=== PATIENT | male | born 1955 | race Caucasian/White ===

== ENCOUNTER → 2018-05-10 10:53 | Outpatient (CLI) | payer OTHER, SELFPAY ==
--- NOTE | 2018-05-17 17:47 | PM.PFT.1 ---
Pulmonary Function Test Referral & Results Date Patient Seen: 05/10/18 Requesting provider: Fadi Garcia Results: The spirometry demonstrates an FVC of 4.11 L which is 75% of predicted. The FEV1 was measured at 3.26 L which is 79% of predicted. The FEV1/FVC ratio was 79 which is 105% of predicted. Following the administration of bronchodilator there was no appreciable change. Lung volumes show an SVC of 5.18 L which is 96% of predicted. The diffusing capacity was measured at 35.98 which is 92% of predicted. The maximum voluntary ventilation was normal. Interpretation: This study demonstrates very mild obstructive lung disease without evidence of benefit following bronchodilator administration. No other pulmonary abnormality was identified
== END ==
DX: R05 Cough (principal)
CPT/HCPCS: 94010; 94060; 94726; 94729

== ENCOUNTER → 2018-09-07 10:48 | Outpatient (CLI) | payer OTHER, SELFPAY ==
--- NOTE | 2018-09-07 | DI.MRI.S_ITS ---
PROCEDURE: MR CERVICAL SPINE WO CON INDICATIONS: Cervicalgia TECHNIQUE: Noncontrast sagittal T1 spin echo and T2 fast spin echo, sagittal STIR, foraminal oblique sagittal T2 fast spin echo, and axial gradient echo or T2 fast spin echo through the cervical spine. COMPARISON: [facility], CR, CERVICAL SPINE 2 OR 3 VIEWS, 04/23/2014, 12:30. [facility], MR, C-SPINE WITHOUT CONTRAST, 05/28/2017, 12:49. [facility], MR, C-SPINE WITHOUT CONTRAST, 05/18/2014, 17:09. FINDINGS: Image quality: Excellent. Alignment and Curvature: There is normal bony alignment. Bone Marrow: Marrow demonstrates normal overall signal. Spinal Cord: Visualized spinal cord has normal size and signal. No cerebellar tonsillar herniation. Paraspinous Soft Tissues: No paravertebral masses. Prevertebral soft tissues are normal in thickness. C2-C3: Preserved disc height. Mild disc desiccation. Mild bilateral uncovertebral hypertrophy. Moderate right facet arthropathy. The central canal is patent. Mild right foraminal stenosis. Patent left neural foramen. There is no significant change from the last exam. C3-C4: Preserved disc height. Mild disc desiccation. There is diffuse posterior disc bulge and mild bilateral uncovertebral hypertrophy. Severe left and moderate right facet arthropathy. The central canal is mildly narrowed. Severe left and moderate right foraminal stenosis. There is no significant change from the last exam. C4-C5: Pkxy-tu-[id number] loss of disc height and disc desiccation. There is diffuse posterior disc bulge and disc osteophyte complex. Bilateral uncovertebral hypertrophy. Mild bilateral facet arthropathy. The central canal is severely narrowed. There is mild flattening of the anterior cord at this level. Severe bilateral foraminal stenosis. There is no significant change from the last exam. C5-C6: Mild loss of disc height and moderate disc desiccation. There is diffuse posterior disc bulge and disc osteophyte complex. Mild bilateral facet arthropathy. The central canal is moderately narrowed. Moderate right and mild left foraminal stenosis. There is no significant change from the last exam. C6-C7: Moderate loss of disc height and moderate disc desiccation. There is diffuse posterior disc bulge and large disc osteophyte complex. Mild bilateral facet arthropathy. The central canal is moderately narrowed. Mild bilateral foraminal stenosis. There is no significant change from the last exam. C7-T1: Normal appearance. IMPRESSION: 1. Multilevel degenerative disc disease and facet arthropathy as described. 2. Central canal stenosis, severe at C4-C5, moderate at C5-C6 and C6-C7. 3. Multilevel foraminal stenosis as described, severe at C3-C4 on the left and C4-C5 bilaterally, moderate at C3-C4 on the right and C5-C6 on the right. Dictated by: Gisela Peters M.D. on 09/09/2018 at 9:41 Approved by: Gisela Peters M.D. on 09/09/2018 at 9:59
== END ==
PROVIDERS: PCP Registered Nurse; Visit Provider Registered Nurse
DX: M50.31 Other cervical disc degeneration, high cervical region (principal); M47.812 Spondylosis without myelopathy or radiculopathy, cervical region; M48.02 Spinal stenosis, cervical region
CPT/HCPCS: 72141

== ENCOUNTER → 2019-07-16 13:51 | Outpatient (CLI) | payer MEDICARE, OTHER, SELFPAY ==
--- NOTE | 2019-07-16 | DI.CT.S_ITS ---
PROCEDURE: CT CHEST W CON INDICATIONS: LUNG NODULE TECHNIQUE: After the administration of intravenous contrast, 5 mm thick sections acquired from the pulmonary apices to the posterior costophrenic angles. 1 mm axial lung, 5 mm thick coronal and sagittal reformats and 7 mm axial MIP were acquired. For radiation dose reduction, the following was used: automated exposure control, adjustment of mA and/or kV according to patient size. COMPARISON: [facility], , CHEST 2 VIEW, 04/23/2014, 12:30. FINDINGS: Image quality: Excellent. Lungs and pleura: No acute air space opacities. There are several scattered bilateral subcentimeter calcified pulmonary nodules likely representing pulmonary granulomas. There is a 5 mm noncalcified pulmonary nodule seen in the anterior aspect of the left upper lobe visualized on image 81, series 3. No pleural effusions or pneumothorax. Central and peripheral airways are patent and normal in caliber. Mediastinum: Heart size is normal. Scattered atherosclerotic calcifications of the coronary arteries are noted. No pericardial effusion. No mediastinal or hilar adenopathy by size criteria. Several of these mediastinal and hilar lymph nodes are calcified. Thoracic aorta and central pulmonary arteries are normal in size. Esophagus is normal in caliber. No hiatal hernia. Bones and chest wall: No suspicious bony lesions. No acute vertebral body compression fractures. Multilevel spondylitic changes throughout the imaged spine. No axillary or supraclavicular adenopathy by size criteria. Thyroid gland is unremarkable. Abdomen: 2 cm partially exophytic right renal cyst. Calcified splenic granuloma. Remainder of the visualized upper abdominal solid organs appear normal. Upper abdominal bowel loops are normal in caliber. IMPRESSION: 1. CT chest without acute cardiopulmonary abnormalities. 2. Multiple stigmata of prior granulomatous disease with calcified pulmonary granulomas, calcified mediastinal/hilar lymph nodes, and calcified splenic granuloma. There is one 5 mm noncalcified pulmonary nodule in the left upper lobe. This likely represents a noncalcified pulmonary granuloma; however, consider followup chest CT in one year to document stability. Dictated by: Maicol Jaquez M.D. on 07/16/2019 at 16:11 Approved by: Maicol Jaquez M.D. on 07/16/2019 at 16:23
[2019-07-16 14:25] LABS: BUN Creatinine Ratio 26.7 (6-22); Blood Urea Nitrogen 24 mg/dL (9-20); Calcium 9.6 mg/dL (8.4-10.2); Carbon Dioxide 26 mmol/L (22-32); Chloride 104 mmol/L (98-107); Estimated Glomerular Filt Rate > 60.0 mL/min (>60); Glucose 168 mg/dL (80-110); HEMOLYSIS < 15 (0-50); Potassium 3.7 mmol/L (3.4-5.1); Sodium 140 mmol/L (137-145)
== END ==
PROVIDERS: PCP Registered Nurse; Visit Provider Physician Assistant Medical
DX: R91.8 Other nonspecific abnormal finding of lung field (principal); I25.10 Atherosclerotic heart disease of native coronary artery without angina pectoris; M47.819 Spondylosis without myelopathy or radiculopathy, site unspecified; N28.1 Cyst of kidney, acquired
CPT/HCPCS: 36415; 71260; 80048; Q9967

== ENCOUNTER → 2019-10-17 11:45 | Outpatient (CLI) | payer MEDICARE, OTHER, SELFPAY ==
--- NOTE | 2019-10-17 | DI.MRI.S_ITS ---
PROCEDURE: MR SHOULDER LT WO CON INDICATIONS: Pain in left shoulder TECHNIQUE: Noncontrast oblique coronal T2 fast spin echo with fat saturation, oblique sagittal T1 spin echo and T2 fast spin echo with fat saturation, axial T1 spin echo and T2 fast spin echo with fat saturation through the shoulder. COMPARISON: [facility] [place], CR, XR SHOULDER 2+ VIEWS LEFT, 08/08/2019, 11:30. FINDINGS: Image quality: Diagnostic. Rotator cuff: There is a complete subscapularis tendon tear that measures approximately 3.4 cm in transverse dimension with retraction of the torn tendon fragments by approximately 2.6 cm, which are positioned at the acromioclavicular joint. A portion of the supraspinatus tendon insertion remains attached to the greater tuberosity, which measures up to approximately 1.5 cm. There is increased signal noted involving the distal subscapularis and infraspinatus tendons without significant hearing evident. There may be low-grade partial-thickness tearing extending along the infraspinatus myotendinous junction. The teres minor tendon is intact. There is no significant atrophy of the rotator cuff muscles. Bones and bursae: No acute fracture, dislocation, or suspicious osseous lesions are identified involving the osseous structures of the left shoulder. No significant degenerative changes of the glenohumeral joint are present. There are moderate degenerative changes of the acromioclavicular joint with mild lateral acromial downsloping. There is a large glenohumeral joint effusion that communicates with the subacromial subdeltoid bursa. Capsule and soft tissues: Evaluation of the labrum and the glenohumeral ligaments is suboptimal without intra-articular contrast. No acute injuries are suspected involving the glenohumeral ligaments, which appear to be intact. There is irregularity of the posterosuperior labrum, which extends from the 12 o'clock position to the 3 o'clock position, suggesting chronic labral degeneration or labral tearing. The long head of the biceps tendon is normally positioned within the bicipital groove and is otherwise intact and unremarkable. IMPRESSION: 1. Complete supraspinatus tendon tear with moderate distal retraction. 2. Low grade partial thickness tearing and tendinopathy of the subscapularis and supraspinatus tendons with corresponding tendinopathy. An interstitial/delaminating component extending along the infraspinatus myotendinous junction may be present. 3. Small to moderate-sized posterosuperior labral tear likely is chronic/degenerative. 4. Moderate degenerative changes of the acromioclavicular joint. Dictated by: Stevie Benavides M.D. on 10/17/2019 at 14:56 Approved by: Stevie Benavides M.D. on 10/17/2019 at 15:00
== END ==
PROVIDERS: PCP Registered Nurse; Referring Provider Family Medicine; Visit Provider Orthopaedic Surgery
DX: M25.512 Pain in left shoulder (principal); M75.122 Complete rotator cuff tear or rupture of left shoulder, not specified as traumatic; S43.492A Other sprain of left shoulder joint, initial encounter
CPT/HCPCS: 73221

== ENCOUNTER → 2020-05-11 11:20 | Outpatient (CLI) | payer MEDICARE, OTHER, SELFPAY ==
--- NOTE | 2020-05-11 | DI.CT.S_ITS ---
PROCEDURE: CT ABDOMEN PELVIS WO/W CON INDICATIONS: Hematuria, unspecified TECHNIQUE: Optional 5 mm thick noncontrast images acquired from the diaphragm to the symphysis pubis. After the administration of intravenous contrast, 5 mm thick images acquired from the diaphragm to the symphysis pubis after a 10-minute delay. 2 mm thick coronal and sagittal reformats were then performed of the kidneys and ureters. For radiation dose reduction, the following was used: automated exposure control, adjustment of mA and/or kV according to patient size. COMPARISON: [facility] [place], CR, XR LUMBAR SPINE WITH OLBIQUES PLUS FLEXION EXTENSION, 11/19/2017, 14:40. [facility], CT, CT CHEST W CON, 07/16/2019, 15:12. FINDINGS: Image quality: Excellent. Lung bases: Lung bases are clear. Scattered calcified granuloma. Heart size is normal. Urinary system: Both kidneys are normal in size, without hydronephrosis. The 3 small nonobstructing kidney stones on the right measuring 3 mm or less. No perinephric fat stranding. There is normal bilateral renal enhancement. Several small benign renal cysts and peripelvic cysts bilaterally. No solid renal mass. Renal calyces appear normal in morphology when filled with contrast. Opacified portions of both ureters demonstrate normal caliber. Bladder wall thickness is normal. No calcified bladder stones. Other solid organs: Liver is normal in size. Hepatic steatosis. Gallbladder is unremarkable. . Biliary system is non dilated. Pancreas enhances normally. Spleen is normal in size and enhancement. Calcified splenic granuloma. No adrenal nodules. Peritoneum and bowel: Bowel loops demonstrate normal wall thickness and caliber. Normal appendix. No free fluid or air. Nodes and vessels: No retroperitoneal or mesenteric adenopathy by size criteria. Aorta and inferior vena cava are normal in size. Abdominal wall: No ventral hernias. Pelvis: No pathologic free pelvic fluid. Right hydrocele. Prostate brachytherapy seeds. No inguinal hernias or adenopathy. Bones: No suspicious bony lesions. Sclerotic focus in the L4 vertebral body is unchanged since 2018. No vertebral body compression fractures. IMPRESSION: 1. No solid renal mass. 2. No upper urinary tract filling defect within the opacified portions. 3. Small nonobstructing kidney stones in the right kidney. No hydronephrosis. 4. Hepatic steatosis. Dictated by: Narciso Tobias M.D. on 05/11/2020 at 18:41 Approved by: Narciso Tobias M.D. on 05/11/2020 at 18:49
[2020-05-11 11:52] LABS: BUN Creatinine Ratio 37.5 (6-22); Blood Urea Nitrogen 30 mg/dL (9-20); Calcium 9.8 mg/dL (8.4-10.2); Carbon Dioxide 25 mmol/L (22-32); Chloride 106 mmol/L (98-107); Estimated Glomerular Filt Rate > 60.0 mL/min (>60); Glucose 94 mg/dL (80-110); HEMOLYSIS < 15 (0-50); Potassium 4.6 mmol/L (3.4-5.1); Sodium 138 mmol/L (137-145)
== END ==
PROVIDERS: PCP Family Medicine; Referring Provider Physician Assistant; Visit Provider Physician Assistant
DX: Z01.812 Encounter for preprocedural laboratory examination (principal); R31.9 Hematuria, unspecified; K76.0 Fatty (change of) liver, not elsewhere classified; N20.0 Calculus of kidney
CPT/HCPCS: 36415; 74178; 80048; Q9967

== ENCOUNTER → 2020-07-15 12:06 | Outpatient (CLI) | payer MEDICARE, OTHER, SELFPAY ==
--- NOTE | 2020-07-15 | DI.CT.S_ITS ---
PROCEDURE: CT CHEST HIGH RESOLUTION INDICATIONS: Other disorders of lung TECHNIQUE: Noncontrast 1.0 and 5.0 mm thick contiguous axial sections from the pulmonary apex to the posterior costophrenic angles, with 7 mm thick coronal and sagittal MIP reformats. 1 mm thick dynamic expiratory images acquired through the upper, mid, and lower lungs. 1.0 mm thick axial sections acquired from the roberth to the posterior costophrenic angles in the prone end-inspiration position. For radiation dose reduction, the following was used: automated exposure control, adjustment of mA and/or kV according to patient size. COMPARISON: [facility], CT, CT CHEST W CON, 07/16/2019, 15:12. FINDINGS: Image quality: Excellent. Lungs and pleura: Several widely scattered bilateral calcified nodules are again seen. A noncalcified nodule in the anterior left upper lobe is stable measuring 5 mm (3/84). No other suspicious nodules, masses, cysts, pleural effusions, or pleural calcification. Central and peripheral airways are patent and of normal caliber without peribronchial thickening. No air trapping on dynamic images. Mediastinum: Heart size is normal. Mild coronary calcification at the distal LAD. No pericardial effusion. Multiple calcified mediastinal lymph nodes are present. No new bulky noncalcified mediastinal or hilar nodes. Thoracic aorta and central pulmonary arteries are normal in size. Esophagus is normal in caliber. Bones and chest wall: Healed deformity of prior right rib fractures. No suspicious bony lesions. No vertebral body compression fractures. Abdomen: Visualized upper abdominal solid organs demonstrate mild to moderate hepatic steatosis and are otherwise normal appearing. IMPRESSION: 1. Stable noncalcified anterior left upper lobe nodule. Continued surveillance until at least two year stability has been established. 2. Multiple bilateral calcified granulomas and mediastinal tino calcifications consistent with remote granulomatous disease exposure. 3. Mild hepatic steatosis. Dictated by: Maile Peck M.D. on 07/15/2020 at 15:58 Approved by: Maile Peck M.D. on 07/15/2020 at 16:09
== END ==
PROVIDERS: PCP Family Medicine; Referring Provider Physician Assistant; Visit Provider Physician Assistant
DX: R91.8 Other nonspecific abnormal finding of lung field (principal); J98.4 Other disorders of lung; K76.0 Fatty (change of) liver, not elsewhere classified; I25.10 Atherosclerotic heart disease of native coronary artery without angina pectoris
CPT/HCPCS: 71250

== ENCOUNTER → 2021-04-05 09:06 | Outpatient (CLI) | payer MEDICARE, OTHER, SELFPAY ==
--- NOTE | 2021-04-05 09:08 | DI.RAD.S_ITS ---
PROCEDURE: XR KUB INDICATIONS: Kidney stones TECHNIQUE: One view of the abdomen acquired. COMPARISON: [facility], CT, CT ABDOMEN PELVIS WO/W CON, 05/11/2020, 12:18. FINDINGS: Surgical changes and devices: None. Bowel: Bowel gas pattern is normal. Soft tissues: No suspicious abdominal calcifications. Visualized solid organ contours appear normal in size. Bones: No suspicious bony lesions. IMPRESSION: Nonspecific bowel gas pattern. A urinary tract stone is not seen. Dictated by: Viraj Joe M.D. on 04/05/2021 at 10:13 Approved by: Viraj Joe M.D. on 04/05/2021 at 10:13
[2021-04-05 11:25] LABS: Prostate Specific Antigen 0.192 ng/mL (0.10-4.00)
== END ==
PROVIDERS: PCP Family Medicine; Referring Provider Specialist; Visit Provider Specialist
DX: R97.20 Elevated prostate specific antigen [PSA] (principal); N20.0 Calculus of kidney
CPT/HCPCS: 36415; 74018; 84153

== ENCOUNTER → 2021-08-24 12:49 | Outpatient (CLI) | payer MEDICARE, OTHER, SELFPAY ==
[2021-08-24 13:51] LABS: COVID19 -Nasal RAPID Negative (Negative)
== END ==
PROVIDERS: PCP Family Medicine; Referring Provider Internal Medicine; Visit Provider Internal Medicine
DX: Z20.822 Contact with and (suspected) exposure to COVID-19 (principal)
CPT/HCPCS: 87635; C9803

== ENCOUNTER → 2021-08-25 08:59 | Outpatient (CLI) | payer MEDICARE, OTHER, SELFPAY ==
--- NOTE | 2021-09-02 16:29 | P.PFT.S_ITS ---
Pulmonary Function Test Referral & Results Date Patient Seen: 08/25/21 Requesting provider: Tata Dudley Results: The spirometry demonstrates an FVC of 3.81 L which is 70% of predicted. The FEV1 was measured at 2.65 L which is 66% of predicted. The FEV1/FVC ratio was 70 which is 94% of predicted. Following the administration of bronchodilator there was a 9% improvement in FEV1 and a 34% improvement in FEF 25-75% Lung volumes show an SVC of 4.29 L which is 80% of predicted. The diffusing capacity was measured at 30.49 which is 78% of predicted. No hemoglobin value was provided, so no correction for potential anemia could be made, if appropriate. The maximum voluntary ventilation was normal Interpretation: This study demonstrates moderate obstructive lung disease based on reduction F EV1 although FEV1/FVC ratio is preserved there is some minimal evidence of benefit following bronchodilator particularly small airway flow based on the improvement in FEF 25-75% as above There is a minimal reduction in lung volumes suggesting mild restrictive lung disease There is also minimal reduction diffusing capacity suggesting element of disease at the capillary alveolar level Compared to PFTs performed in April 2018, there is been a decline in all of patient's lung volumes. The minimal obstructive lung disease seen on current study does not appear to be present on previous study There is also a more notable reduction in diffusing capacity Clinical correlation suggested
== END ==
PROVIDERS: PCP Family Medicine; Referring Provider Internal Medicine Cardiovascular Disease; Visit Provider Internal Medicine Cardiovascular Disease
DX: R06.02 Shortness of breath (principal); Z87.891 Personal history of nicotine dependence; J98.8 Other specified respiratory disorders
CPT/HCPCS: 94060; 94726; 94729

== ENCOUNTER → 2021-11-29 11:03 | Outpatient (CLI) | payer MEDICARE, OTHER, SELFPAY ==
--- NOTE | 2021-11-29 | DI.CT.S_ITS ---
PROCEDURE: CT CHEST WO CON INDICATIONS: Solitary pulmonary nodule TECHNIQUE: Noncontrast 2.0-2.5 mm thick sections acquired from the pulmonary apices to the posterior costophrenic angles. 7 mm thick axial MIP and 5 mm coronal and sagittal reformats were then acquired. A low radiation dose technique was utilized. COMPARISON: [facility], CT, CT CHEST W CON, 07/16/2019, 15:12. [facility], CT, CT CHEST HIGH RESOLUTION, 07/15/2020, 12:11. FINDINGS: Image quality: Diagnostic, given the low radiation dose technique. Lungs and pleura: There is a 5 mm solid, noncalcified nodule in the left upper lobe anteriorly, unchanged in size since 07/16/2019. Multiple calcified lung nodules are present bilaterally, consistent with remote granulomatous disease. No pulmonary infiltrate or pleural effusion. Mediastinum: Heart size is normal. Moderate coronary artery calcification. No pericardial effusion. There are multiple calcified lymph nodes in mediastinum and ely bilaterally, consistent with remote granulomatous disease. Thoracic aorta and central pulmonary arteries are normal in size. Esophagus is normal in caliber. No hiatal hernia. Bones and chest wall: No suspicious bony lesions. No vertebral body compression fractures. No axillary or supraclavicular adenopathy by size criteria. Thyroid gland is normal. Abdomen: Mild hepatic steatosis. Visualized upper abdomen solid organs and bowel loops appear normal in the absence of contrast. IMPRESSION: 1. Stable 5 mm left upper lobe nodule since 07/16/2019, most likely benign. 2. Multiple calcified nodules and calcified lymph nodes consistent with remote granulomatous disease. Fleischner Society criteria for SOLID lung nodule followup. Nodule size (mm)Low-risk patientHigh-risk patient<6 (single or multiple)No routine followup.Optional CT at 12 months. 6-8 (single or multiple)CT at 6-12 months, then optional CT at 18-24 mo.CT at 6-12 months, then CT at 18-24 months. >8 (single)CT at 3 months, PET-CT, or biopsy. Same as for low-risk pts. >8 (multiple)CT at 3-6 months, then optional CT at 18-24 mo.CT at 3-6 months, then CT at 18-24 months. Recommendations do not apply to lung cancer screening, patients with immunosuppression, or patients with known primary cancer. Dictated by: Gisela Peters M.D. on 11/29/2021 at 11:32 Approved by: Gisela Peters M.D. on 11/29/2021 at 11:39
== END ==
PROVIDERS: PCP Internal Medicine; Referring Provider Internal Medicine; Visit Provider Internal Medicine
DX: R91.1 Solitary pulmonary nodule (principal); J98.4 Other disorders of lung; I25.10 Atherosclerotic heart disease of native coronary artery without angina pectoris; K76.0 Fatty (change of) liver, not elsewhere classified
CPT/HCPCS: 71250

== ENCOUNTER → 2021-12-12 11:46 | Outpatient (CLI) | payer MEDICARE, OTHER, SELFPAY ==
--- NOTE | 2021-12-12 11:48 | DI.MRI.S_ITS ---
PROCEDURE: MR HIP RT WO CON INDICATIONS: Pain in right hip TECHNIQUE: Noncontrast coronal T1 spin echo and STIR through the bony pelvis. Coronal and axial T2 fast spin echo with fat saturation, sagittal T1 spin echo, and oblique axial T2 fast spin echo with fat saturation through the hip. COMPARISON: None. FINDINGS: Image quality: Excellent. Bones and joints: Bone marrow of the pelvic ring and proximal femurs show normal signal throughout. No intraosseous lesions or fractures. No avascular necrosis of the femoral heads. Small joint effusion with evidence of mild synovitis. Tendons and ligaments: The gluteus medius and minimus tendons appear intact, without associated muscle atrophy. The nearby proximal iliotibial band also appears intact. The iliopsoas tendon appears intact, however, small amount adjacent bursal fluid is seen. The origin of the hamstring tendon is intact at the ischial tuberosity. Small focus of T2 hyperintense signal within the biceps femoris tendon, compatible with tendinopathy/partial tear. The ligamentum teres appears intact where visualized. Labrum and cartilage: T2 hyperintense signal is seen within the posterior labrum with adjacent T2 hyperintense focus (i.e. 4-17), compatible with paralabral cyst. Additional T2 hyperintense foci are seen within the superior acetabulum (i.e. 4-6) with deficiency of the overlying labrum, compatible with fibrocystic degenerative change. Signal heterogeneity and thinning of the hyaline cartilage. The alpha angle of the femur is within normal limits at less than 55 degrees. Soft tissues: Visualized muscles demonstrate normal bulk and internal signal. Quadratus femoris muscle demonstrates no internal edema to suggest ischiofemoral impingement. The proximal sciatic neurovascular bundle appears normal adjacent to the hamstring tendons. No free pelvic fluid. The urinary bladder is not well distended. Foci of susceptibility artifact within the prostate, which may reflect brachytherapy seeds. IMPRESSION: 1. Posterior labral tear with adjacent paralabral cyst. 2. Mild iliopsoas bursitis. 3. Small joint effusion with suggestion of mild synovitis. 4. Mild tendinopathy/partial tear of the biceps femoris tendon. Dictated by: Gregg Springer M.D. on 12/12/2021 at 13:31 Approved by: Gregg Springer M.D. on 12/12/2021 at 14:13
== END ==
PROVIDERS: PCP Internal Medicine; Referring Provider Orthopaedic Surgery; Visit Provider Orthopaedic Surgery
DX: S73.191A Other sprain of right hip, initial encounter (principal); S76.811A Strain of other specified muscles, fascia and tendons at thigh level, right thigh, initial encounter; M70.71 Other bursitis of hip, right hip; M25.451 Effusion, right hip; M25.551 Pain in right hip
CPT/HCPCS: 73721

== ENCOUNTER → 2021-12-21 18:49 | Outpatient (CLI) | payer MEDICARE, OTHER, SELFPAY ==
--- NOTE | 2021-12-21 18:53 | DI.MRI.S_ITS ---
PROCEDURE: MR LUMBAR SPINE WO CON INDICATIONS: Radiculopathy TECHNIQUE: Noncontrast sagittal T1 spin echo and T2 fast echo, sagittal STIR, axial T1 and T2 fast spin echo through the lumbar spine. In cases with scoliosis, additional coronal T2 fast spin echo may be performed. COMPARISON: None. FINDINGS: Image quality: Excellent. Alignment and Curvature: There is trace retrolisthesis of L1 on L2, L2 on L3, L4 on L5 and L5 on S1. Bone Marrow: Marrow is of normal overall signal. There is mild increased reactive endplate changes at L1-2, L2-3, L4-5, L5-S1, minimal L3-4. Schmorl's nodes are noted the superior endplate of L3 as well as inferior endplate of L4. No acute vertebral body compression fractures. Spinal Cord: Conus medullaris terminates at the L1 level. Visualized cord demonstrates normal signal and size. Paraspinous Soft Tissues: No paravertebral masses. Discs: Moderate to severe desiccation is present throughout the lumbar spine. L1-L2: Minimal disc bulge without spinal stenosis. Mild left foraminal narrowing with facet and ligamentum flavum hypertrophy. L2-L3: Mild disc bulge without spinal stenosis. Minimal to mild left foraminal narrowing with facet and ligamentum flavum hypertrophy. L3-L4: Mild disc bulge without spinal stenosis. [id number]-jhyvaxam right and minimal to mild left foraminal narrowing with facet and ligamentum flavum hypertrophy. L4-L5: Mild disc bulge with mild spinal stenosis. Moderate to severe left and [id number] right foraminal narrowing with facet and ligamentum flavum hypertrophy. L5-S1: Mild disc bulge without spinal stenosis. Moderate to severe bilateral, left greater than right foraminal narrowing with facet hypertrophy. IMPRESSION: Multilevel disc bulges. Mild spinal stenosis at L4-5 secondary to disc bulge with contributing affective facet/ligamentum flavum arthropathy. Multilevel foraminal narrowing most severe at L4-5 and L5-S1 secondary to facet arthropathy. Dictated by: Kristie No M.D. on 12/22/2021 at 15:13 Approved by: Kristie No M.D. on 12/22/2021 at 15:22
== END ==
PROVIDERS: PCP Internal Medicine; Referring Provider Orthopaedic Surgery; Visit Provider Orthopaedic Surgery
DX: M51.16 Intervertebral disc disorders with radiculopathy, lumbar region (principal); M47.26 Other spondylosis with radiculopathy, lumbar region; M47.27 Other spondylosis with radiculopathy, lumbosacral region; M48.061 Spinal stenosis, lumbar region without neurogenic claudication; M48.07 Spinal stenosis, lumbosacral region
CPT/HCPCS: 72148

== ENCOUNTER → 2022-03-06 13:31 | Outpatient (CLI) | payer MEDICARE, OTHER, SELFPAY ==
--- NOTE | 2022-03-06 | DI.CT.S_ITS ---
PROCEDURE: CT LUMBAR SPINE WO CON INDICATIONS: spinal stenosis lumbar region TECHNIQUE: Noncontrast 3 mm thick sections acquired from the T12 level to the sacrum. Sagittal and coronal reformats were constructed. For radiation dose reduction, the following was used: automated exposure control. Comparison: [facility], CT, CT ABDOMEN PELVIS WO/W CON, 05/11/2020, 12:18. [facility], CR, XR LUMBAR SPINE WITH OLBIQUES PLUS FLEXION EXTENSION, 11/19/2017, 14:40. [facility], MR, MR LUMBAR SPINE WO CON, 12/21/2021, 19:12. [facility]: FINDINGS: Image quality: Excellent. Bones: There is trace, approximately 2 millimeters of T12-L1 and L1-L2 retrolisthesis. There is trace, approximately 3 millimeters of L2-L3 retrolisthesis. No acute vertebral body compression fractures. Sclerotic lesion noted in the left aspect of the L4 vertebral body which is stable compared to prior exams and likely represents a bone island. No pars defects. T12-L1: Loss of disc height. Vacuum disc phenomenon. Endplate osteophytosis. Mild, diffuse disc bulge. No central stenosis. Mild bilateral neural foraminal narrowing. No neural compression. L1-L2: Loss of disc height. Vacuum disc phenomenon. Endplate osteophytosis. Mild, diffuse disc bulge. Mild bilateral facet hypertrophy. Mild narrowing of the central canal. Moderate right and severe left neural foraminal narrowing with slight compression of the exiting left L1 nerve root. L2-L3: Loss of disc height. Vacuum disc phenomenon. Endplate osteophytosis. Mild, diffuse disc bulge. Mild bilateral facet hypertrophy. Mild to moderate narrowing of the central canal. Mild to moderate bilateral neural foraminal narrowing. No neural compression. L3-L4: Loss of disc height. Vacuum disc phenomenon. Endplate osteophytosis. Mild, diffuse disc bulge. Mild bilateral facet hypertrophy. Mild narrowing of the central canal. Mild bilateral neural foraminal narrowing. No neural compression. L4-L5: Loss of disc height. Vacuum disc phenomenon. Endplate osteophytosis. Mild, diffuse disc bulge. [id number] bilateral facet hypertrophy. Mild to moderate narrowing of the central canal. Moderate right and severe left neural foraminal narrowing with slight compression of the exiting left L4 nerve root. L5-S1: Loss of disc height. Vacuum disc phenomenon. Mild, diffuse disc bulge. Mild bilateral facet hypertrophy. No central stenosis. Moderate to severe bilateral neural foraminal narrowing with slight compression of the exiting L5 nerve roots. Soft tissues: No retroperitoneal masses or hematomas. Visualized aorta is normal in caliber. IMPRESSION: 1. Multilevel degenerative disc disease. 2. Multilevel facet arthropathy. 3. No severe central canal narrowing. 4. Severe left L1-L2 and L4-L5 neural foraminal narrowing with slight compression of the exiting left L1 and L4 nerve roots. Moderate to severe bilateral L5-S1 neural foraminal narrowing with slight compression of the exiting bilateral L5 nerve roots. Dictated by: Flores Munoz MD, PhD on 03/06/2022 at 14:48 Approved by: Flores Munoz MD, PhD on 03/06/2022 at 14:56
[2022-03-06 14:31] LABS: Add Manual Diff / Slide Review NO; Basophils Absolute Auto 0 /uL (0-100); Basophils Percent Auto 0.7 % (0-2); Eosinophils Absolute Auto 100 /uL (0-450); Eosinophils Percent Auto 2.5 % (2-4); Hematocrit 37.5 % (41-53); Hemoglobin 13.2 g/dL (13.5-17.5); Lymphocytes Absolute Auto 1400 /uL (1100-4500); Mean Corpuscular HGB Conc 35.2 % (30-36); Mean Corpuscular Hemoglobin 30.7 PG (26-34); Mean Corpuscular Volume 87.1 fL (80-100); Monocytes Absolute Auto 500 /uL (0-900); Monocytes Percent Auto 9.4 % (3-14); Neutrophils Absolute Auto 3000 /uL (1500-7000); Neutrophils Percent Auto 59.4 % (50-75); Platelet Count 185 X10^3/uL (150-400); Red Blood Cell Count 4.31 X10^6/uL (4.5-5.9); Red Cell Distribution Width 12.8 % (11.6-14.8); White Blood Cell Count 5.1 X10^3/uL (4.5-11.0)
[2022-03-06 14:35] LABS: Hemoglobin A1C% w Est Avg Glu 5.8 % (4.0-6.0)
[2022-03-06 14:52] LABS: Blood Urea Nitrogen 16 mg/dL (9-20); Carbon Dioxide 30 mmol/L (22-32); Chloride 105 mmol/L (98-107); Estimated Glomerular Filt Rate > 60 mL/min (>60); Glucose 103 mg/dL (80-110); HEMOLYSIS < 15 (0-50); Potassium 4.6 mmol/L (3.4-5.1); Sodium 140 mmol/L (137-145)
== END ==
PROVIDERS: PCP Internal Medicine; Referring Provider Orthopaedic Surgery Orthopaedic Surgery of the Spine; Visit Provider Orthopaedic Surgery Orthopaedic Surgery of the Spine
DX: Z01.818 Encounter for other preprocedural examination (principal); M48.061 Spinal stenosis, lumbar region without neurogenic claudication; M48.07 Spinal stenosis, lumbosacral region; Z01.812 Encounter for preprocedural laboratory examination; M51.36 Other intervertebral disc degeneration, lumbar region; M51.37 Other intervertebral disc degeneration, lumbosacral region; M47.816 Spondylosis without myelopathy or radiculopathy, lumbar region; M47.817 Spondylosis without myelopathy or radiculopathy, lumbosacral region; R73.9 Hyperglycemia, unspecified
CPT/HCPCS: 36415; 72131; 80048; 83036; 85025; 93005; 93010

== ENCOUNTER 2022-03-22 07:02 | Inpatient (IN) | payer MEDICARE, OTHER, SELFPAY ==
[2022-03-15 12:49] VITALS: BMI 28.1
[2022-03-22] VITALS (18 sets, daily range): BP systolic 117–143; BP diastolic 66–79; PULSE 55–81; RESP 10–18; TEMP 35.8–36.6; O2SAT 96–100; BMI 27.8
--- NOTE | 2022-03-22 | DI.RAD.S_ITS ---
PROCEDURE: XR LUMBAR SPINE 2-3V INDICATIONS: L4-5 L5-S1 TLIF TECHNIQUE: 2 fluoroscopic views of the lumbar spine were acquired. COMPARISON: [facility], CT, CT LUMBAR SPINE WO [facility], 03/06/2022, 13:45. FINDINGS: Image guidance provided for L4-S1 pedicle screw fixation. Intervertebral body spacers. Hardware projects in the expected location. IMPRESSION: Intraoperative guidance provided. Dictated by: Narciso Tobias M.D. on 03/22/2022 at 13:42 Approved by: Narciso Tobias M.D. on 03/22/2022 at 13:44
[2022-03-22 07:46] LABS: COVID19 -Nasal RAPID Negative (Negative)
[2022-03-22] MEDS: LACTATED RINGERS 1,000 ML 42 ML IV ×2 (08:08→11:01)
--- NOTE | 2022-03-22 08:43 | PM.PREOP ---
Pre-operative Note COVID-19 COVID-19 status: Negative Result date/Date tested (Pos, Neg/Pending): 03/22/22 Criteria for continued procedure: Expected advancement of disease process, Possibility delay results in more complex future surgery or treatment, Increased loss of function, Continuing or worsening of significant or severe pain, Deterioration of the patient's condition or overall health and Delay expected to result in less-positive ultimate med/surg outcome Interval Note History & Physical reviewed/Exam performed by Physician: Yes Changes to H&P: No
[2022-03-22] MEDS: CEFAZOLIN 2 GM/20 ML SYRINGE IV ×2 (08:57→15:48)
--- NOTE | 2022-03-22 10:22 | SUR.OPER ---
Prone on spine table, head in foam head support, padded chest and pelvic supports, gel pad at knees, lower legs supported by pillows; nipples, genitalia and toes free of pressure, arms secured on foam padded arm boards at <90 degrees abduction. Tape over blanket at thigh secured to table. Gel pad between heels.
[2022-03-22] MEDS: BUPIVACAINE LIPOSOME 266 MG/20 ML VIAL INJ (12:32)
[2022-03-22] MEDS: BUPIVACAINE 0.25% (PF) 60 ML, EPINEPHrine 0.3 MG INJ (12:32)
--- NOTE | 2022-03-22 12:38 | PM.OP.1 ---
Operative Date/Time/Diagnoses Date of procedure: 03/22/22 Time of procedure: 08:45 Pre-op diagnosis: 1. L4-5, L5-S1 spinal stenosis with radiculopathy 2. Lumbar spondylosis with radiculopathy Post-op diagnosis: same Procedure & Clinicians Procedure: 1. L4-5, L5-S1 Postero-lateral and posterior interbody fusion 2. L4-5, L5-S1 interbody cage placement. 3. L4-5, L5-S1 decompressive laminectomy with bilateral facetecomies 4. L4-5, L5-S1 Posterior segmental instrumentation 5. [place] of bone marrow from iliac crest 6. Utilization of microsurgical technique and operating microscope 7. Utilization of robotic assisted navigation Same procedure as scheduled: Yes Indications: Patient has been having chronic back pain and worsening lumbar radiculopathy. Patient failed multiple conservative management with worsening pain weakness and numbness in her lower extremity. Patient has been having difficulty performing activity of daily living. After discussing risks benefits of treatment options, patient elected proceed with surgery. Surgeon: Kristy Winslow Marine Diesel Mechanic: Jose Miguel Hernandez Click Yes if Unassisted: No Anesthesia Type: General Operative Notes Closure Type: primary Specimen(s): none sent Prosthetic devices, grafts, tissues, transplants, or devices: Globus CREO MIS screws, Rise cages Applied: catheter Estimated Blood Loss (mL): 100 Blood products transfused: none Procedure in detail: Patient was seen in the preoperative area. Risks and benefits of the surgery was discussed with the patient. Informed consent was obtained from the patient and placed in the chart. Surgical site was marked. Patient was taken to the operative room. General anesthesia was administered. Prophylactic antibiotic was given to the patient less than 30 min before the incision was made. Patient was placed into a prone position on the Omega table. Patient's back was then prepped and draped in the sterile fashion. Time-out was performed at this time. After patient was prepped and draped, patient's PSIS was palpated and marked bilaterally. Small 1 cm incision was made over the PSIS for placement of the reference probes. Two trocar was placed into the PSIS 1 on each side. The reference probe was attached to the trocar of the reference apparatus. At this time the C-arm imaging was used to confirm AP and lateral of L4-L5, L5-S1 vertebrae and merged the C-arm imaging using the Reach.ly robotic navigation system with the CT of the lumbar spine. After successful merging was completed and confirmed, skin marker was used to brandon out the skin incision using the Reach.ly robotic arm. Bilateral incision was made at this time. Pre templated trajectory was used and guided using the Reach.ly robotic navigation system for bilateral L4, L5, S1 pedicle screw placement. This was done by using the robotic arm to guide the high-speed bur to make a cortical entry point. Next a drill was placed also using the robotic arm and guided using the navigation system drilling partially through bilateral L4, L5 and S1 pedicles. Next L4, L5, S1 pedicle screws it was pre templated and measured was placed onto the power driver engineer and inserted into the pedicles bilaterally. After all 6 screws were placed C-arm imaging was taken of both AP and lateral to confirm the placement. Excellent placement of the screws were confirmed and a matched precisely with the pre planned screw placement using the navigation system. MARs retractor was inserted using [employer] Health[employer] guidence. Globus MARS retractors was placed inside the incision and docked onto the L4 and L5 lamina. Using microsurgical technique and operating microscope, a L4, L5 laminectomy and L4-5, L5-S1 facetectomy was performed using a Kerrison rongeur. Patient was found have severe lateral recess and neural foramen stenosis which was fully decompressed after the laminectomy facetectomy. More than 75% of the facets were removed during the process of decompression rendering L4-5, L5-S1 level grossly unstable and required a fusion procedure at the same time. The disc space at L4-5, L5-S1 was identified, and a total diskectomy was performed at L4-5, L5-S1 level. The endplates were decorticated using a rasp and shaver. The total diskectomy and decortication was performed at L4-5, L5-S1 level in order to to accomplish a L4-5, L5-S1 fusion. The local bone from the laminectomy and facetectomy was saved for local bone grafting. After the total diskectomy and decortication was completed, Trifecta bone graft material was combined with local bone that was harvested earlier. At this time, a separate skin is incision was made over the iliac crest. A Jamshidi needle was inserted into the iliac crest through a separate skin incision. 5 cc of bone marrow aspiration was obtained through the separate skin incision using a Jamshidi needle from the iliac crest. The bone marrow aspiration was combined with local bone and the Trifecta bone grafting material. The bone grafting material was placed into the L4-5, L5-S1 interbody space along with a expandable cage. The cage was expanded to its maximum height using the torque limiting screwdriver. The disc preparation as well as the cage insertion were also performed under navigation guidance. After the cage was placed, AP and lateral C-arm imaging was taken to confirm placement of the cage and excellent position was confirmed. Globus MARS retractor was inserted and docked onto the L4-5, L5-S1 posterolateral gutter on the right side. Using the power drill, posterior-lateral decortication was performed at L4-5, L5-S1 level until bleeding cortical bone was identified. The remaining bone grafting material was placed into the L4-5, L5-S1 posterior lateral gutter he order to accomplish posterolateral fusion at the L4-5, L5-S1 level. At this time the tulips were attached to the L4, L5, S1 pedicle screw shanks. After measuring the length of the rods, they were inserted into the tulips of the pedicle screws and locked in place using locking caps and torque limiting screwdriver bilaterally. Total 6 caps and 2 titanium rods was used in order to complete the posterior instrumentation construct. After all the hardware was placed, and confirmed with AP and lateral C-arm imaging, the wound was then irrigated with sterile normal saline and packed with Ray-Valente gauze for 3 min to accomplish hemostasis. After the gauze was removed the deep fascia was closed with #1 Vicryl suture. The subcutaneous layer was closed with 2-0 Vicryl. The skin was closed with skin kraig. Patient tolerated the procedure well. There were no complications. Neuro monitoring system was used to monitor patient's neurologic status throughout entire procedure. There was no disturbance of the neural monitoring signals throughout the case. Complications: none Post-operative Condition: stable Disposition: PACU Plan for aftercare: Admit to inpatient hospital
[2022-03-22] MEDS: hydrOXYzine 50 MG/ML INJ IM (13:30)
[2022-03-22] MEDS: fentaNYL 100 MCG/2 ML INJ IV (13:32)
[2022-03-22] MEDS: OXYCODONE/ACETAMINOPHEN 5/325 TABLET 1 TAB PO (13:51)
[2022-03-22] MEDS: SODIUM CHLORIDE 0.9% 1,000 ML 100 ML IV (15:24)
[2022-03-22] MEDS: OXYCODONE IR 5 MG TABLET 10 MG PO (21:08)
[2022-03-22] MEDS: ESCITALOPRAM 10 MG TABLET PO (21:08)
[2022-03-22] MEDS: AMLODIPINE 5 MG TABLET PO (21:08)
[2022-03-22] MEDS: DOCUSATE 100 MG CAPSULE PO (21:09)
[2022-03-22] MEDS: SENNOSIDES 8.6 MG TABLET 17.2 MG PO (21:09)
[2022-03-23] VITALS (7 sets, daily range): BP systolic 104–133; BP diastolic 49–69; PULSE 73–84; RESP 17–20; TEMP 36.6–37.2; O2SAT 92–99
[2022-03-23] MEDS: OXYCODONE IR 5 MG TABLET 10 MG PO ×8 (00:24→23:42)
[2022-03-23] MEDS: CEFAZOLIN 2 GM/20 ML SYRINGE IV (00:25)
[2022-03-23] MEDS: SODIUM CHLORIDE 0.9% 1,000 ML 100 ML IV (01:14)
[2022-03-23] MEDS: PANTOPRAZOLE DR 20 MG TABLET PO (05:53)
[2022-03-23 06:00] LABS: Hemoglobin 11.8 g/dL (13.5-17.5)
[2022-03-23] MEDS: ASCORBIC ACID 500 MG TABLET 1000 MG PO (09:21)
[2022-03-23] MEDS: DOCUSATE 100 MG CAPSULE PO ×2 (09:21→20:52)
[2022-03-23] MEDS: CHOLECALCIFEROL (VITAMIN D3) 1,000 UNIT TABLET 5000 UNIT PO (09:21)
[2022-03-23] MEDS: ATORVASTATIN 20 MG TABLET PO (09:21)
[2022-03-23] MEDS: CYCLOBENZAPRINE 10 MG TABLET 5 MG PO ×2 (09:21→20:53)
[2022-03-23] MEDS: INDOMETHACIN 25 MG CAPSULE PO (09:23)
--- NOTE | 2022-03-23 09:25 | PT.IIE ---
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 GERD (gastroesophageal reflux disease) Heart murmur History of brachytherapy History of malignant neoplasm of prostate HLD (hyperlipidemia) HTN (hypertension) Lower urinary tract symptoms (LUTS) Nephrolithiasis YANETH on CPAP Pneumonia Prostate cancer (~2013) Sciatica Spinal stenosis Tinnitus Umbilical hernia Physical Therapy Inpatient Evaluation/Re-Eval M1 PT/OT-IP Prior Functional Status Start: 03/23/22 12:51 Freq: NEEDED Status: Active Protocol: Document 03/23/22 09:25 AB (Rec: 03/23/22 13:09 AB [email or web address]) Medical Review Prior Functional Status Medical History Reviewed Yes Communication able to make needs known Mobility and Gait Pt stated that he is modified independent with all mobilities and ambulation without AD but occasionally uses his walking stick depending on his pain Social History Household Members spouse Living Arrangements House Number of Floors (Floors) One Floor Number of Stairs To Enter/Railing? 2 steps without rails to enter Home Environment Standard Height Toilet,Tub/ Shower Home Equipment Hand Held Shower,Grab Bars In Shower Additional Social History Comment pt stated that spouse will not be able to assist him because she is busy with their ranch. stated that he told the doctor that he is going to SNF . pt also stated that the doctor told him that he will need a FWW but he did not get one because they were too busy M2 PT-IP Current Condition Start: 03/23/22 12:51 Freq: NEEDED Status: Active Protocol: Document 03/23/22 09:25 AB (Rec: 03/23/22 13:09 AB [email or web address]) Physical Therapy Current Condition Current Condition Evaluation Date 03/23/22 Treatment Diagnosis s/p l4-5, L5S1 TLIF; difficulty in walking Onset Date 03/22/22 M3 PT-IP Subjective Start: 03/23/22 12:51 Freq: NEEDED Status: Active Protocol: Document 03/23/22 09:25 AB (Rec: 03/23/22 13:09 AB [email or web address]) Subjective Physical Therapy Visit Type Type Initial Evaluation Visit Start Time 09:25 Visit Stop Time 10:05 Total Visit Minutes 40 Number of DINING CAR STEWARD Visits 0 Physical Therapy Visit Comments Patient Comments agreeable to do PT Therapy Pain Assessment Pain When Pain Assessed At Rest Pain Present Pain Present Pain Reported Location right 2nd knuckle Intensity 8 Scale Used Numeric (0 - 10) Pain Management Techniques Apply Cold,Distraction, Modification of Treatment,Re- positioning,Timing of Activity with Medications M4 PT-IP Mobility and Gait Start: 03/23/22 12:51 Freq: NEEDED Status: Active Protocol: Document 03/23/22 09:25 AB (Rec: 03/23/22 13:09 [email or web address]) PT-Bed Mobility Assessment Rolling Type of Rolling Log Rolling Level of Assist Standby Assistance Supine to Sit Supine to Sit Standby Assistance Sit to Supine Sit to Supine Standby Assistance PT-Transfer Assessment Sit to and From Stand Sit to and from Stand Minimal Assistance,1 Person Assistance,Use of Upper Extremities Equipment Transfer Assistive Device Gait Belt,Front Wheeled Walker Orthotic/Prosthetic Devices or Brace: No Comments Mobility Comments educated pt on back precautions and log roll bed mobility. completed supine to sit log roll SBA. c/o increase back pain. completed sit to stand min A and ambulated in room using FWW min A ~ 35 ft. increase R knee flexion in late stance. cued for upright posture and quads activation. pt refused to sit on the chair and wants to go back to bed. completed log roll sit to supine SBA. positioned pt in bed. call light and table placed within reach. ice pack provided. Gait Assessment Gait Gait Assistance Required: Minimum Assistance Distance (Feet) 35 Able to Maintain Weight Bearing Status Yes During Gait Assistive Devices Assistive Device Gait Belt,Front Wheeled Walker Orthotic/Prosthetic Devices or Brace: No Gait Deviations General Gait Pattern Decreased Stride Length, Decreased Feet Clearance,Step- to Gait Factors Limiting Gait Function Factors Limiting Gait Function Decreased Activity Tolerance, Decreased Sensation,Decreased Strength,Pain,Poor Balance PT-Balance Assessment Sitting Balance and Reactions Static Sitting Balance Ability Good Dynamic Sitting Balance Ability Good Standing Balance and Reactions Static Standing Balance Ability Fair Dynamic Standing Balance Ability Fair Device Used FWW M5 PT-IP Objective Assessments Start: 03/23/22 12:51 Freq: NEEDED Status: Active Protocol: Document 03/23/22 09:25 AB (Rec: 03/23/22 13:09 AB [email or web address]) Orientation Orientation/Cognition Level of Alertness Alert Orientation Name,Place,Situation Language Function Ability No Deficits Noted Safety Awareness Decreased Safety Awareness Memory Description No Deficits Noted Gross Range of Motion Lower Extremity ROM Assessment Within Functional Limits Strength Lower Extremity Strength Hip 4-/5 Knee 3+/5 Sensation Assessment Sensation Gross Sensation Right LE Impaired,Left LE Impaired Sensation Description Numbness,Tingling Comments Sensation Comments lateral thighs Muscle Tone Muscle Tone WNL Yes M6 PT-IP Treatment Start: 03/23/22 12:51 Freq: NEEDED Status: Active Protocol: Document 03/23/22 09:25 AB (Rec: 03/23/22 13:09 AB [email or web address]) Physical Therapy Treatment Education Education Provided Precautions,Weight Bearing Status,Post-Op Packet,Safety M7 PT-IP Assessment and Plan Start: 03/23/22 12:51 Freq: NEEDED Status: Active Protocol: Document 03/23/22 09:25 AB (Rec: 03/23/22 13:09 AB [email or web address]) PT Summary Assessment and Plan Potential Rehabilitation Potential Fair Status of Condition at Evaluation Stable Summary Impairments Pain,ROM,Strength,Balance, Coordination,Sensation,Tone, Cognition,Bed Mobility, Transfers,Gait,Activity Tolerance Assessment Summary pt requiring min A with mobility using FWW and stated that he does not have assistance at home. Pt needs to be more independent than current level to be able to go home safely. will continue to assess progress. Goals Bed Mobility Goal Independent Transfer Goal Standby Assistance,Front Wheeled Walker Gait Goal Standby Assistance,Front Wheel Walker Gait Distance 250 Other Goals up/down 2 steps without rail using SPC/HAUNTED HISTORY TOUR GUIDE CGA Days to Meet Goals 10 Frequency of Treatment Frequency Of Treatment Twice a Day Treatment Plan Physical Therapy Treatment Plan Bed Mobility Training,Transfer Training,Gait Training, Therapeutic Exercise,Balance Retraining,Post Op Education, Discharge Planning,Hot or Cold Pack,Neuromuscular Re-ed, Coordination Retraining,Manual Therapy Precautions Lumbar Precautions Log Roll,No Twisting,Limit Bending,Lifting Restriction of 10 lbs,Gait Belt above Incisional Area Recommendations To Nursing Amount of Assist Needed 1 Person Assist Discharge Recommendations PT Discharge Recommendations SNF Rehab,Home vs SNF Equipment Needed for Home Before FWW Discharge Transportation Needs at Discharge Private Vehicle,Wheelchair/ Cabulance
--- NOTE | 2022-03-23 11:34 | OT.IP.EVAL ---
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 GERD (gastroesophageal reflux disease) Heart murmur History of ankle surgery (1993) History of arthroscopy of left shoulder (2019) History of back surgery History of brachytherapy History of bunionectomy of right great toe (1999) History of malignant neoplasm of prostate History of mandibular surgery (1973) History of prostate biopsy HLD (hyperlipidemia) HTN (hypertension) Hx of bilateral cataract extraction Lower urinary tract symptoms (LUTS) Nephrolithiasis YANETH on CPAP Pneumonia Prostate cancer (~2013) S/P cervical spinal fusion (2018) Sciatica Spinal stenosis Tinnitus Umbilical hernia Surgical History (Last Updated 03/15/22 @ 13:23 by Yu Markham RN) History of ankle surgery (1993) History of arthroscopy of left shoulder (2019) History of back surgery History of bunionectomy of right great toe (1999) History of mandibular surgery (1973) History of prostate biopsy Hx of bilateral cataract extraction S/P cervical spinal fusion (2018) Occupational Therapy Inpatient Evaluation/Re-Eval M1 PT/OT-IP Prior Functional Status Start: 03/23/22 12:51 Freq: NEEDED Status: Active Protocol: Document 03/23/22 13:03 [facility] (Rec: 03/23/22 13:18 [facility] [id number]) Medical Review Prior Functional Status Communication independent Mobility and Gait independent with no device per pt Activities of Daily Living and IADL's pt needing increased time to complete ADL needs due to his pain Social History Household Members spouse Living Arrangements House Number of Floors (Floors) One Floor Number of Stairs To Enter/Railing? 2 steps and no rail to get into the house Home Environment Standard Height Toilet,Tub/ Shower Home Equipment Grab Bars In Shower Additional Social History Comment Pt lives with his and she is not able to assist as having to take care of the all the horses and cats at home. M2 OT-IP Current Condition Start: 03/23/22 13:03 Freq: Status: Active Protocol: Document 03/23/22 13:03 [facility] (Rec: 03/23/22 13:18 [facility] [id number]) Occupational Therapy Current Condition Current Condition Evaluation Date 03/23/22 Treatment Diagnosis S/P L4-5, L5-S1 TLIF Post Operative Precautions Lumbar Precautions Log Roll,No Twisting,Limit Bending,Lifting Restriction of 10 lbs,Gait Belt above Incisional Area M3 OT- IP Subjective and Pain Start: 03/23/22 13:03 Freq: Status: Active Protocol: Document 03/23/22 13:03 [facility] (Rec: 03/23/22 13:18 [facility] [id number]) OT- Subjective Occupational Therapy Visit Type Type Initial Evaluation Visit Start Time 11:05 Visit Stop Time 11:34 Total Visit Minutes 29 Occupational Therapy Visit Comments Patient Comments Pt agreed to get up to the sink for oral care needs. Patient/Caregiver Goals To go to skilled rehab. OT Pain Assessment Pain When Pain Assessed At Rest Pain Present Pain Present Pain Reported Location right 2nd knuckle Intensity 6 Scale Used Numeric (0 - 10) M4 OT- IP ADL's Start: 03/23/22 13:03 Freq: Status: Active Protocol: Document 03/23/22 13:03 [facility] (Rec: 03/23/22 13:18 [facility] [id number]) OT EYB-Ilyt-Ynahlpt Comments OT Self-Feeding Comments NOt at meal time. OT ADL-Grooming General Evaluation Grooming Ability Standby Assistance Areas Needing Assistance Retrieving/Set-up of Grooming Items OT ADL-Oral Care General Eval Oral Care Ability Standby Assistance Areas of Assistance Retrieving/Set-Up of Items Comments Oral Care Comments Educated pt to hinge at his hips or just spit into the sink to best follow his back precautions. OT ADL-Dressing General Eval Lower Body Dressing Ability Maximum Assistance Comments OT Dressing Comments Initiated conversation of LB dressing equipment to be able to assist pt independence for LB dressing needs. OT ADL-Toileting Comments OT Toileting Comments Pt not having to go. Pt states has a very low toilet at home and would benefit from a toilet riser versus BSC. OT ADL-Bathing Comments OT Bathing Comments Not performed. Pt would benefit from either a shower chair or tub bench pending his progress. M5 OT- IP IADL's Start: 03/23/22 13:03 Freq: Status: Active Protocol: Document 03/23/22 13:03 [facility] (Rec: 03/23/22 13:18 [facility] [id number]) OT-Instrumental Activities of Daily Living Deficits IADL Deficits Identified Deficits Home Safety Awareness Awareness of Need for Assistance at Home Good Awareness Ability to Problem Solve Emergency Able to Problem Solve Situations M6 OT- IP Functional Cognition Start: 03/23/22 13:03 Freq: Status: Active Protocol: Document 03/23/22 13:03 [facility] (Rec: 03/23/22 13:18 [facility] [id number]) Cognitive Factors Limiting Selfcare Function Cognitive Ability Level of Alertness Alert Patient Orientation Name,Age,Birthday,Month,Date, Year,Day of Week,Place, Situation Attention Span Ability Capable of Focused Attention, Capable of Sustained Attention Ability to Follow Commands Able to Follow One Step Commands Safety Awareness Decreased Recall of Precautions,Decreased Ability to Apply Precautions Cognitive Comments Cognitive Assessment Comments Pt needing reminders to remember no lifting for his back precautions and to keep the FWW in front on him at all times. OT- Vision and Hearing OT- Hearing Assessment OT- Hearing Assessment WFL M7 OT- IP Mobility and Balance Start: 03/23/22 13:03 Freq: Status: Active Protocol: Document 03/23/22 13:03 [facility] (Rec: 03/23/22 13:18 [facility] [id number]) OT- Bed Mobility Assessment Sit to Supine Sit to Supine Assist Moderate Assistance OT-Transfer Assessment Sit to and From Stand Sit to and from Stand Minimal Assistance,Moderate Assistance Transfers Transfer Ability Contact Guard Assistance Technique Transfer Destination Bed Transfer Technique Stand Step Pivot Devices Transfer Assistive Devices Gait Belt,Front Wheeled Walker Comments Mobility Comments MIN/MODA to stand from the bed . OT- Balance Assessment Sitting Balance and Reactions Static Sitting Balance Ability Good Dynamic Sitting Balance Ability Fair Standing Balance and Reactions Static Standing Balance Ability Fair M8 OT- IP Objective Assessments Start: 03/23/22 13:03 Freq: Status: Active Protocol: Document 03/23/22 13:03 [facility] (Rec: 03/23/22 13:18 [facility] [id number]) OT-Muscle Tone Assessment Muscle Tone WNL Yes M9 OT- IP Assessment and Plan Start: 03/23/22 13:03 Freq: Status: Active Protocol: Document 03/23/22 13:03 [facility] (Rec: 03/23/22 13:18 [facility] [id number]) OT Summary Assessment and Plan Potential Rehabilitation Potential Good Analytic Complexity at Evaluation Low Summary OT Impairments Pain,Balance,Functional Mobility,Grooming,Dressing, Toileting,Bathing,Toilet Transfers,Shower Transfers Progress Towards Goals Slow Progress due to Pain Assessment Summary Pt low complexity and main barrier is pain at this time. Pt's not able to assist pt at home and therefore would be best for pt to go to skilled rehab prior to going home. Pt is very cooperative and motivated to get better and have great rehab potential . Goals Self-Feeding Goal Independent Grooming Goal Independent Dressing Goal Independent Toileting Goal Independent Bathing Goal Independent Toilet Transfer Goal Independent Shower Transfer Goal Independent Days to Meet Goals 20 Frequency of Treatment Frequency Of Treatment Once a Day Treatment Plan OT Treatment Plan ADL Training,Functional Mobility,Patient/Family Education,Discharge Planning Other Treatment Recommendations and Next LB dressing training Treatment Focus Discharge Recommendations OT Discharge Recommendations SNF Rehab Transportation Needs at Discharge Wheelchair/Cabulance
[2022-03-23] MEDS: hydrOXYzine pamoate 25 MG CAPSULE PO ×2 (13:12→23:43)
[2022-03-23] MEDS: ACETAMINOPHEN 325 MG TABLET 650 MG PO (13:13)
--- NOTE | 2022-03-23 14:30 | PT.IPTN ---
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 machines and devices (03/22/22) Surgery Performed Operation Date: 03/22/22 08:45 Actual Procedures p L4-5, L5-S1 with posterior instrumentation -Robot - Kristy Winslow MD Physical Therapy Treatment Note M2 PT-IP Current Condition Start: 03/23/22 12:51 Freq: NEEDED Status: Active Protocol: Document 03/23/22 09:25 [facility] (Rec: 03/23/22 13:09 AB [id number]) Physical Therapy Current Condition Current Condition Evaluation Date 03/23/22 Treatment Diagnosis s/p l4-5, L5S1 TLIF; difficulty in walking Onset Date 03/22/22 M3 PT-IP Subjective Start: 03/23/22 12:51 Freq: NEEDED Status: Active Protocol: Document 03/23/22 14:10 [place] (Rec: 03/23/22 15:07 [place] [id number]) Subjective Physical Therapy Visit Type Type Treatment Note Visit Start Time 14:10 Visit Stop Time 14:30 Total Visit Minutes 20 Number of FORESTRY AID TECHNICIAN Visits 1 Physical Therapy Visit Comments Patient Comments agreeable to do PT Therapy Pain Assessment Pain When Pain Assessed During Mobility Pain Present Pain Present Pain Reported Location back Intensity 8 Scale Used Numeric (0 - 10) Description Sharp,Shooting Pain Behaviors Facial Grimacing,Guarding, Restlessness,Wincing M4 PT-IP Mobility and Gait Start: 03/23/22 12:51 Freq: NEEDED Status: Active Protocol: Document 03/23/22 14:10 [place] (Rec: 03/23/22 15:07 KS [id number]) PT-Bed Mobility Assessment Rolling Type of Rolling Log Rolling Level of Assist Standby Assistance Supine to Sit Supine to Sit Contact Guard Assistance Sit to Supine Sit to Supine Moderate Assistance,1 Person Assistance,Bedrails Scooting Scooting to Edge of Bed Contact Guard Assistance PT-Transfer Assessment Sit to and From Stand Sit to and from Stand Minimal Assistance,1 Person Assistance,Use of Upper Extremities Equipment Transfer Assistive Device Gait Belt,Front Wheeled Walker Orthotic/Prosthetic Devices or Brace: No Transfers Transfer Destination Bed Transfer Technique Pt ambulated w/ FWW Transfer Ability Level of Assist Minimal Assistance,1 Person Assistance,Use of Upper Extremities Comments Mobility Comments Pt in bed upon arrival and agreeable to PT. Pt SBA for logroll and CGA and cues for sup<>sit. Pt reported dizziness when sitting, BP: 122/48. Pt sit<>stand w/ FWW Min A and cues and continues to report slight dizziness but feels its due to pain which he reports as 8/10. Pts BP in standin/60. Pt then performed marching in place ~ 30 seconds and ambulated to bathroom w/ FWW CGA. After voiding pt requested to get back into bed. CGA for stand<> sit on raised bed. Bed lowered and then pt required Mod A for LE elevation into bed for sit<>sup. Pt left in bed w/ alarm on and all needs in reach. Gait Assessment Gait Gait Assistance Required: Contact Guard Assist Distance (Feet) 15 Able to Maintain Weight Bearing Status Yes During Gait Assistive Devices Assistive Device Gait Belt,Front Wheeled Walker Orthotic/Prosthetic Devices or Brace: No Gait Deviations General Gait Pattern Decreased Stride Length, Decreased Feet Clearance,Step- to Gait Factors Limiting Gait Function Factors Limiting Gait Function Decreased Activity Tolerance, Decreased Sensation,Decreased Strength,Pain,Poor Balance Comments Gait Comments Pt w/ low tolerance for gait due to pain. Very slow w/ decreased stride and foot clearance and heavy weight bearing of BUE through FWW. PT-Balance Assessment Sitting Balance and Reactions Static Sitting Balance Ability Good Dynamic Sitting Balance Ability Good Standing Balance and Reactions Static Standing Balance Ability Fair Dynamic Standing Balance Ability Fair Device Used FWW M5 PT-IP Objective Assessments Start: 03/23/22 12:51 Freq: NEEDED Status: Active Protocol: Document 03/23/22 09:25 [facility] (Rec: 03/23/22 13:09 AB [id number]) Orientation Orientation/Cognition Level of Alertness Alert Orientation Name,Place,Situation Language Function Ability No Deficits Noted Safety Awareness Decreased Safety Awareness Memory Description No Deficits Noted Gross Range of Motion Lower Extremity ROM Assessment Within Functional Limits Strength Lower Extremity Strength Hip 4-/5 Knee 3+/5 Sensation Assessment Sensation Gross Sensation Right LE Impaired,Left LE Impaired Sensation Description Numbness,Tingling Comments Sensation Comments lateral thighs Muscle Tone Muscle Tone WNL Yes M6 PT-IP Treatment Start: 03/23/22 12:51 Freq: NEEDED Status: Active Protocol: Document 03/23/22 14:10 [place] (Rec: 03/23/22 15:07 FL [id number]) Physical Therapy Treatment Education Education Provided Precautions,Weight Bearing Status,Post-Op Packet,Safety M7 PT-IP Assessment and Plan Start: 03/23/22 12:51 Freq: NEEDED Status: Active Protocol: Document 03/23/22 14:10 [place] (Rec: 03/23/22 15:07 FL [id number]) PT Summary Assessment and Plan Potential Rehabilitation Potential Fair Status of Condition at Evaluation Stable Summary Impairments Pain,ROM,Strength,Balance, Coordination,Sensation,Tone, Cognition,Bed Mobility, Transfers,Gait,Activity Tolerance Assessment Summary PT SBA to CGA for most bed mobility, but did require Mod A to lift legs into bed this PM. Min A for sit<>stand w/ FWW and only able to tolerate ambulating to bathroom and back due to 8/10 reported pain . Pt will need to improve functional mobility independence prior to d/c if going home. May benefit from SNF if he does not improve mobility and activity tolerance. Will continue to progress as tolerated. Goals Bed Mobility Goal Independent Transfer Goal Standby Assistance,Front Wheeled Walker Gait Goal Standby Assistance,Front Wheel Walker Gait Distance 250 Other Goals up/down 2 steps without rail using SPC/DIRECTOR DISTRIBUTION CGA Days to Meet Goals 10 Frequency of Treatment Frequency Of Treatment Twice a Day Treatment Plan Physical Therapy Treatment Plan Bed Mobility Training,Transfer Training,Gait Training, Therapeutic Exercise,Balance Retraining,Post Op Education, Discharge Planning,Hot or Cold Pack,Neuromuscular Re-ed, Coordination Retraining,Manual Therapy Precautions Lumbar Precautions Log Roll,No Twisting,Limit Bending,Lifting Restriction of 10 lbs,Gait Belt above Incisional Area Recommendations To Nursing Amount of Assist Needed 1 Person Assist Discharge Recommendations PT Discharge Recommendations SNF Rehab,Home vs SNF Equipment Needed for Home Before FWW Discharge Transportation Needs at Discharge Private Vehicle,Wheelchair/ Cabulance
[2022-03-23] MEDS: TERAZOSIN 5 MG CAPSULE 10 MG PO (14:57)
--- NOTE | 2022-03-23 16:01 | PM.PNPO.1 ---
Subjective Subjective Date Patient Seen: 03/23/22 Time Patient Seen: 11:05 Interval history: Patient is complaining of moderate to severe low back pain. He has not worked with PT yet. He takes indomethacin for arthritis pain at baseline. Exam Vital Signs (past 8 hours): - 03/23/22 13:41 03/23/22 15:09 Temperature 97.8 F Pulse Rate 77 Respiratory Rate 20 Blood Pressure 128/68 Pulse Oximetry 92 94 Oxygen Delivery Method Room Air Oxygen Flow Rate 0 Narrative Exam Narrative: Pleasant 66yo male, walking back from restroom, no actue distress. Dressing demonstrates bilateral bloody drainage, no surrounding erythema or induration. Bilat lower extremities: motor funcitons are grossly intact, sensation is grossly intact to light touch, bilateral calves are soft and nonTTP. 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 GERD (gastroesophageal reflux disease) Heart murmur History of brachytherapy History of malignant neoplasm of prostate HLD (hyperlipidemia) HTN (hypertension) Lower urinary tract symptoms (LUTS) Nephrolithiasis YANETH on CPAP Pneumonia Prostate cancer (~2013) Sciatica Spinal stenosis Tinnitus Umbilical hernia Surgical History History of ankle surgery (1993) History of arthroscopy of left shoulder (2019) History of back surgery History of bunionectomy of right great toe (1999) History of mandibular surgery (1973) History of prostate biopsy Hx of bilateral cataract extraction S/P cervical spinal fusion (2018) Family History Father BPH (benign prostatic hyperplasia) Cancer Hearing impairment Mother Cancer Stroke Diabetes mellitus Hyperlipidemia Social History marital status: household members: spouse occupational status: previously employed Smoking Status: Current some day smoker alcohol intake: current caffeine: Yes Assessment & Plan Post-op Postoperative Procedures: Procedures Operation Date: 03/22/22 08:45 Actual Procedure Side Surgeon p L4-5, L5-S1 with posterior instrumentation -Robot Kristy Winslow MD Postoperative day: 1 Postoperative status narrative: -stable status post L4-5, L5-S1 TLIF -postop acute blood loss anemia, mild, asymptomatic Postoperative plan narrative: -mobilize w PT. 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 If he does well and is safe with PT, encouraged him to consider going home instead. Disposition in 1-2 days
[2022-03-23] MEDS: SENNOSIDES 8.6 MG TABLET 17.2 MG PO (20:52)
[2022-03-23] MEDS: ESCITALOPRAM 10 MG TABLET PO (20:52)
[2022-03-23] MEDS: AMLODIPINE 5 MG TABLET PO (20:53)
[2022-03-23] MEDS: SODIUM CHLORIDE 0.9% FLUSH 10 ML IV (20:54)
[2022-03-24] MEDS: hydrOXYzine pamoate 25 MG CAPSULE PO (04:32)
[2022-03-24] MEDS: OXYCODONE IR 5 MG TABLET 10 MG PO ×4 (04:32→20:05)
[2022-03-24 04:44] VITALS: BP 107/79; PULSE 81; RESP 19; TEMP 37.3; O2SAT 93
[2022-03-24] MEDS: PANTOPRAZOLE DR 20 MG TABLET PO (05:52)
[2022-03-24] MEDS: CHOLECALCIFEROL (VITAMIN D3) 1,000 UNIT TABLET 5000 UNIT PO (08:31)
[2022-03-24] MEDS: ACETAMINOPHEN 325 MG TABLET 650 MG PO ×2 (08:31→22:23)
[2022-03-24] MEDS: MELOXICAM 7.5 MG TABLET PO (08:31)
[2022-03-24] MEDS: ASCORBIC ACID 500 MG TABLET 1000 MG PO (08:31)
[2022-03-24] MEDS: DOCUSATE 100 MG CAPSULE PO ×2 (08:31→20:03)
[2022-03-24] MEDS: ATORVASTATIN 20 MG TABLET PO (08:32)
[2022-03-24] MEDS: SODIUM CHLORIDE 0.9% FLUSH 10 ML IV ×2 (08:36→20:06)
[2022-03-24 09:00] VITALS: BP 135/71; PULSE 78; RESP 18; TEMP 38.3; O2SAT 96
--- NOTE | 2022-03-24 09:28 | PT.IPTN ---
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 machines and devices (03/22/22) Surgery Performed Operation Date: 03/22/22 08:45 Actual Procedures p L4-5, L5-S1 with posterior instrumentation -Robot - Kristy Winslow MD Physical Therapy Treatment Note M2 PT-IP Current Condition Start: 03/23/22 12:51 Freq: NEEDED Status: Active Protocol: Document 03/23/22 09:25 AB (Rec: 03/23/22 13:09 AB [id number]) Physical Therapy Current Condition Current Condition Evaluation Date 03/23/22 Treatment Diagnosis s/p l4-5, L5S1 TLIF; difficulty in walking Onset Date 03/22/22 M3 PT-IP Subjective Start: 03/23/22 12:51 Freq: NEEDED Status: Active Protocol: Document 03/24/22 09:12 KS (Rec: 03/24/22 12:15 KS [id number]) Subjective Physical Therapy Visit Type Type Treatment Note Visit Start Time 09:12 Visit Stop Time 09:28 Total Visit Minutes 16 Number of HOME ECONOMICS EXTENSION WORKER Visits 2 Physical Therapy Visit Comments Patient Comments agreeable to do PT Therapy Pain Assessment Pain When Pain Assessed During Mobility Pain Present Pain Present Pain Reported Location back Intensity 4 Scale Used Numeric (0 - 10) Pain Behaviors Facial Grimacing,Guarding, Restlessness,Wincing Pain Management Techniques Modification of Treatment,Re- positioning,Timing of Activity with Medications M4 PT-IP Mobility and Gait Start: 03/23/22 12:51 Freq: NEEDED Status: Active Protocol: Document 03/24/22 09:12 KS (Rec: 03/24/22 12:15 KS [id number]) PT-Bed Mobility Assessment Rolling Type of Rolling Log Rolling Level of Assist Standby Assistance Supine to Sit Supine to Sit Contact Guard Assistance Sit to Supine Sit to Supine Moderate Assistance,1 Person Assistance,Bedrails Scooting Scooting to Edge of Bed Contact Guard Assistance PT-Transfer Assessment Sit to and From Stand Sit to and from Stand Contact Guard Assistance,1 Person Assistance,Use of Upper Extremities Equipment Transfer Assistive Device Gait Belt,Front Wheeled Walker Orthotic/Prosthetic Devices or Brace: No Transfers Transfer Destination Bed Transfer Technique Pt ambulated w/ FWW Transfer Ability Level of Assist Contact Guard Assistance,1 Person Assistance,Use of Upper Extremities Comments Mobility Comments Pt in bed upon arrival and agreeable to mobilize. CGA for bed mobility and sit<>stand as well as ambulation w/ FWW. Pt only able to tolerate ~30 ft ambulation w/ FWW due to pain and fatigue. Very slow crystal w/ decreased stride and foot clearance, but able to lift feet higher when prompted. Pt requested return to bed and still requires Mod A for LE elevation into bed. Pt left in bed w/ alarm on and all needs in reach. Gait Assessment Gait Gait Assistance Required: Contact Guard Assist Distance (Feet) 30 Able to Maintain Weight Bearing Status Yes During Gait Assistive Devices Orthotic/Prosthetic Devices or Brace: No Gait Deviations General Gait Pattern Decreased Stride Length, Decreased Feet Clearance,Step- to Gait Factors Limiting Gait Function Factors Limiting Gait Function Decreased Activity Tolerance, Decreased Sensation,Decreased Strength,Pain,Poor Balance Comments Gait Comments Pt w/ low tolerance for gait due to pain. Very slow w/ decreased stride and foot clearance and heavy weight bearing of BUE through FWW. PT-Balance Assessment Sitting Balance and Reactions Static Sitting Balance Ability Good Dynamic Sitting Balance Ability Good Standing Balance and Reactions Static Standing Balance Ability Fair Dynamic Standing Balance Ability Fair Device Used FWW M5 PT-IP Objective Assessments Start: 03/23/22 12:51 Freq: NEEDED Status: Active Protocol: Document 03/23/22 09:25 AB (Rec: 03/23/22 13:09 AB [id number]) Orientation Orientation/Cognition Level of Alertness Alert Orientation Name,Place,Situation Language Function Ability No Deficits Noted Safety Awareness Decreased Safety Awareness Memory Description No Deficits Noted Gross Range of Motion Lower Extremity ROM Assessment Within Functional Limits Strength Lower Extremity Strength Hip 4-/5 Knee 3+/5 Sensation Assessment Sensation Gross Sensation Right LE Impaired,Left LE Impaired Sensation Description Numbness,Tingling Comments Sensation Comments lateral thighs Muscle Tone Muscle Tone WNL Yes M6 PT-IP Treatment Start: 03/23/22 12:51 Freq: NEEDED Status: Active Protocol: Document 03/24/22 09:12 KS (Rec: 03/24/22 12:15 KS [id number]) Physical Therapy Treatment Education Education Provided Precautions,Weight Bearing Status,Post-Op Packet,Safety M7 PT-IP Assessment and Plan Start: 03/23/22 12:51 Freq: NEEDED Status: Active Protocol: Document 03/24/22 09:12 KS (Rec: 03/24/22 12:15 KS [id number]) PT Summary Assessment and Plan Potential Rehabilitation Potential Fair Status of Condition at Evaluation Stable Summary Impairments Pain,ROM,Strength,Balance, Coordination,Sensation,Tone, Cognition,Bed Mobility, Transfers,Gait,Activity Tolerance Assessment Summary Pt continues to be CGA for most mobility including ambulation, but required Mod A for sit<>sup and only tolerated 30 ft ambulation w/ FWW. Pt will need to improve functional mobility independence prior to d/c if going home. May benefit from SNF if he does not improve mobility and activity tolerance. Will continue to progress as tolerated. Goals Bed Mobility Goal Independent Transfer Goal Standby Assistance,Front Wheeled Walker Gait Goal Standby Assistance,Front Wheel Walker Gait Distance 250 Other Goals up/down 2 steps without rail using SPC/CHRISTIAN EDUCATION DIRECTOR CGA Days to Meet Goals 10 Frequency of Treatment Frequency Of Treatment Twice a Day Treatment Plan Physical Therapy Treatment Plan Bed Mobility Training,Transfer Training,Gait Training, Therapeutic Exercise,Balance Retraining,Post Op Education, Discharge Planning,Hot or Cold Pack,Neuromuscular Re-ed, Coordination Retraining,Manual Therapy Precautions Lumbar Precautions Log Roll,No Twisting,Limit Bending,Lifting Restriction of 10 lbs,Gait Belt above Incisional Area Recommendations To Nursing Amount of Assist Needed 1 Person Assist Discharge Recommendations PT Discharge Recommendations SNF Rehab,Home vs SNF Equipment Needed for Home Before FWW Discharge Transportation Needs at Discharge Private Vehicle,Wheelchair/ Cabulance
--- NOTE | 2022-03-24 09:38 | PM.PNPO.1 ---
Subjective Subjective Date Patient Seen: 03/24/22 Time Patient Seen: 09:39 Interval history: Pain well controlled. Denies fever chills. No nausea vomiting. Patient states he has minimal assistance at home. Exam Vital Signs (past 8 hours): - 03/24/22 04:44 03/24/22 09:00 Temperature 99.1 F 101 F H Pulse Rate 81 78 Respiratory Rate 19 18 Blood Pressure 107/79 135/71 Pulse Oximetry 93 96 Oxygen Delivery Method Room Air Oxygen Flow Rate 0 Narrative Exam Narrative: 66-year-old male resting comfortably in bed having breakfast in no apparent distress. Motor functions intact bilateral lower extremities. Sensation grossly intact to light touch bilateral lower extremities. 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 GERD (gastroesophageal reflux disease) Heart murmur History of brachytherapy History of malignant neoplasm of prostate HLD (hyperlipidemia) HTN (hypertension) Lower urinary tract symptoms (LUTS) Nephrolithiasis YANETH on CPAP Pneumonia Prostate cancer (~2013) Sciatica Spinal stenosis Tinnitus Umbilical hernia Surgical History History of ankle surgery (1993) History of arthroscopy of left shoulder (2019) History of back surgery History of bunionectomy of right great toe (1999) History of mandibular surgery (1973) History of prostate biopsy Hx of bilateral cataract extraction S/P cervical spinal fusion (2018) Family History Father BPH (benign prostatic hyperplasia) Cancer Hearing impairment Mother Cancer Stroke Diabetes mellitus Hyperlipidemia Social History marital status: household members: spouse occupational status: previously employed Smoking Status: Current some day smoker alcohol intake: current caffeine: Yes Assessment & Plan Post-op Postoperative Procedures: Procedures Operation Date: 03/22/22 08:45 Actual Procedure Side Surgeon p L4-5, L5-S1 with posterior instrumentation -Robot Kristy Winslow MD Postoperative day: 2 Postoperative status narrative: Progressing slowly status post lumbar fusion, currently 1 person assist only able walk 15 ft yesterday with physical therapy Postoperative plan narrative: Mobilize with physical therapy, limit bending, lifting, twisting Multimodal pain management Disposition: Patient will need senior living facility for further rehab, strengthening prior to returning home
--- NOTE | 2022-03-24 10:53 | OT.IP.TRT ---
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 machines and devices (03/22/22) Surgery Performed Operation Date: 03/22/22 08:45 Actual Procedures p L4-5, L5-S1 with posterior instrumentation -Robot - Kristy Winslow MD Occupational Therapy Treatment Note M2 OT-IP Current Condition Start: 03/23/22 13:03 Freq: Status: Active Protocol: Document 03/23/22 13:03 [facility] (Rec: 03/23/22 13:18 [facility] [id number]) Occupational Therapy Current Condition Current Condition Evaluation Date 03/23/22 Treatment Diagnosis S/P L4-5, L5-S1 TLIF Post Operative Precautions Lumbar Precautions Log Roll,No Twisting,Limit Bending,Lifting Restriction of 10 lbs,Gait Belt above Incisional Area M3 OT- IP Subjective and Pain Start: 03/23/22 13:03 Freq: Status: Active Protocol: Document 03/24/22 10:15 [facility] (Rec: 03/24/22 12:26 [facility] [id number]) OT- Subjective Occupational Therapy Visit Type Type Treatment Note Visit Start Time 10:15 Visit Stop Time 10:53 Total Visit Minutes 38 Occupational Therapy Visit Comments Patient Comments Pt agreed to get up and wanting to use the toilet. Patient/Caregiver Goals To go to skilled rehab. OT Pain Assessment Pain When Pain Assessed At Rest Pain Present Pain Present Denied Pain M4 OT- IP ADL's Start: 03/23/22 13:03 Freq: Status: Active Protocol: Document 03/24/22 10:15 [facility] (Rec: 03/24/22 12:26 [facility] [id number]) OT ADL-Grooming General Evaluation Grooming Ability Standby Assistance OT ADL-Dressing General Eval Lower Body Dressing Ability Standby Assistance,Maximum Assistance Areas Needing Assistance Socks Comments OT Dressing Comments Pt able to practice LB dressing with pt to be able to charles/doff his socks. OT ADL-Toileting Comments OT Toileting Comments Pt able to stand with the FWW over the toilet to urinate. OT ADL-Bathing Bathing Type Bathing Type Sponge Bath General Evaluation Bathing Ability Moderate Assistance Areas Needing Assistance Wash/Dry Back,Wash/Dry Lower Extremities Comments OT Bathing Comments Pt states too tired to shower today but able to participate in sponge bathing. M5 OT- IP IADL's Start: 03/23/22 13:03 Freq: Status: Active Protocol: Document 03/23/22 13:03 [facility] (Rec: 03/23/22 13:18 [facility] [id number]) OT-Instrumental Activities of Daily Living Deficits IADL Deficits Identified Deficits Home Safety Awareness Awareness of Need for Assistance at Home Good Awareness Ability to Problem Solve Emergency Able to Problem Solve Situations M6 OT- IP Functional Cognition Start: 03/23/22 13:03 Freq: Status: Active Protocol: Document 03/24/22 10:15 [facility] (Rec: 03/24/22 12:26 [facility] [id number]) Cognitive Factors Limiting Selfcare Function Cognitive Ability Level of Alertness Alert Patient Orientation Name,Age,Birthday,Month,Date, Year,Day of Week,Place, Situation Attention Span Ability Capable of Focused Attention, Capable of Sustained Attention Ability to Follow Commands Able to Follow One Step Commands Cognitive Comments Cognitive Assessment Comments Pt doing better to follow back precautions today. Educated pt to turn around first versus back up with the fww in the bathroom. M7 OT- IP Mobility and Balance Start: 03/23/22 13:03 Freq: Status: Active Protocol: Document 03/24/22 10:15 [facility] (Rec: 03/24/22 12:26 [facility] [id number]) OT- Bed Mobility Assessment Supine to Sit Supine to Sit Assist Standby Assistance Sit to Supine Sit to Supine Assist Standby Assistance OT-Transfer Assessment Sit to and From Stand Sit to and from Stand Contact Guard Assistance Transfers Transfer Ability Standby Assistance Technique Transfer Destination Bed Transfer Technique Stand Step Pivot Devices Transfer Assistive Devices Gait Belt,Front Wheeled Walker OT- Balance Assessment Sitting Balance and Reactions Static Sitting Balance Ability Normal Dynamic Sitting Balance Ability Good Standing Balance and Reactions Static Standing Balance Ability Good M8 OT- IP Objective Assessments Start: 03/23/22 13:03 Freq: Status: Active Protocol: Document 03/23/22 13:03 [facility] (Rec: 03/23/22 13:18 [facility] [id number]) OT-Muscle Tone Assessment Muscle Tone WNL Yes M9 OT- IP Assessment and Plan Start: 03/23/22 13:03 Freq: Status: Active Protocol: Document 03/24/22 10:15 [facility] (Rec: 03/24/22 12:26 [facility] [id number]) OT Summary Assessment and Plan Potential Rehabilitation Potential Good Analytic Complexity at Evaluation Low Summary OT Impairments Pain,Balance,Functional Mobility,Grooming,Dressing, Toileting,Bathing,Toilet Transfers,Shower Transfers Progress Towards Goals Progressing Toward Goals Assessment Summary Pt doing better with mobility and ADl needs. Pt too tired to try a shower today and to do in OT tomorrow. Pt still looking to go to skilled rehab when medically stable. Goals Self-Feeding Goal Independent Grooming Goal Independent Dressing Goal Independent Toileting Goal Independent Bathing Goal Independent Toilet Transfer Goal Independent Shower Transfer Goal Independent Days to Meet Goals 19 Frequency of Treatment Frequency Of Treatment Once a Day Treatment Plan OT Treatment Plan ADL Training,Functional Mobility,Patient/Family Education,Discharge Planning Other Treatment Recommendations and Next shower Treatment Focus Discharge Recommendations OT Discharge Recommendations SNF Rehab Transportation Needs at Discharge Wheelchair/Cabulance
--- NOTE | 2022-03-24 12:40 | PT.IPTN ---
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 machines and devices (03/22/22) Surgery Performed Operation Date: 03/22/22 08:45 Actual Procedures p L4-5, L5-S1 with posterior instrumentation -Robot - Kristy Winslow MD Physical Therapy Treatment Note M2 PT-IP Current Condition Start: 03/23/22 12:51 Freq: NEEDED Status: Active Protocol: Document 03/23/22 09:25 AB (Rec: 03/23/22 13:09 AB [id number]) Physical Therapy Current Condition Current Condition Evaluation Date 03/23/22 Treatment Diagnosis s/p l4-5, L5S1 TLIF; difficulty in walking Onset Date 03/22/22 M3 PT-IP Subjective Start: 03/23/22 12:51 Freq: NEEDED Status: Active Protocol: Document 03/24/22 12:40 AB (Rec: 03/24/22 13:52 AB [id number]) Subjective Physical Therapy Visit Type Type Treatment Note Visit Start Time 12:40 Visit Stop Time 13:00 Total Visit Minutes 20 Number of STEWARD/STEWARDESS DINING ROOM Visits 0 Physical Therapy Visit Comments Patient Comments pt is agreeable to do PT Therapy Pain Assessment Pain When Pain Assessed At Rest Pain Present Pain Present Pain Reported Location back Scale Used scale not stated Pain Management Techniques Distraction,Modification of Treatment,Timing of Activity with Medications M4 PT-IP Mobility and Gait Start: 03/23/22 12:51 Freq: NEEDED Status: Active Protocol: Document 03/24/22 12:40 AB (Rec: 03/24/22 13:52 AB [id number]) PT-Bed Mobility Assessment Rolling Type of Rolling Log Rolling Level of Assist Standby Assistance Supine to Sit Supine to Sit Independent,Head of Bed Elevated Sit to Supine Sit to Supine Standby Assistance,Head of Bed Elevated PT-Transfer Assessment Sit to and From Stand Sit to and from Stand Contact Guard Assistance,1 Person Assistance,Use of Upper Extremities Equipment Transfer Assistive Device Gait Belt,Front Wheeled Walker Orthotic/Prosthetic Devices or Brace: No Comments Mobility Comments completed supine to sit log roll SBA. able to sit on EOB SBA. sit to stand CGA and ambulated in room ~ 60 ft using FWW CGA. pt requested to use the toilet and ambulated to the toilet using FWW. able to maintain standing while using the toilet with FWW for support. ambulated out of the toilet using FWW to the sink and was able to maintain standing using FWW while completing handwashing. pt ambulated more in the room ~ 30 ft and to the bed. pt with slower pacing for 2nd ambulation and with increase R knee bending during late stance. completed log roll sit to supine SBA. positioned in bed. call ight and table placed within reach. Gait Assessment Gait Gait Assistance Required: Contact Guard Assist Distance (Feet) 60 Able to Maintain Weight Bearing Status Yes During Gait Assistive Devices Assistive Device Gait Belt,Front Wheeled Walker Orthotic/Prosthetic Devices or Brace: No Gait Deviations General Gait Pattern Decreased Stride Length, Decreased Feet Clearance,Step- to Gait Factors Limiting Gait Function Factors Limiting Gait Function Decreased Activity Tolerance, Decreased Sensation,Decreased Strength,Limited Range of Motion,Pain,Poor Balance,Poor Safety Awareness M5 PT-IP Objective Assessments Start: 03/23/22 12:51 Freq: NEEDED Status: Active Protocol: Document 03/23/22 09:25 AB (Rec: 03/23/22 13:09 AB [id number]) Orientation Orientation/Cognition Level of Alertness Alert Orientation Name,Place,Situation Language Function Ability No Deficits Noted Safety Awareness Decreased Safety Awareness Memory Description No Deficits Noted Gross Range of Motion Lower Extremity ROM Assessment Within Functional Limits Strength Lower Extremity Strength Hip 4-/5 Knee 3+/5 Sensation Assessment Sensation Gross Sensation Right LE Impaired,Left LE Impaired Sensation Description Numbness,Tingling Comments Sensation Comments lateral thighs Muscle Tone Muscle Tone WNL Yes M6 PT-IP Treatment Start: 03/23/22 12:51 Freq: NEEDED Status: Active Protocol: Document 03/24/22 12:40 AB (Rec: 03/24/22 13:52 AB [id number]) Physical Therapy Treatment Education Education Provided Safety M7 PT-IP Assessment and Plan Start: 03/23/22 12:51 Freq: NEEDED Status: Active Protocol: Document 03/24/22 12:40 AB (Rec: 03/24/22 13:52 AB [id number]) PT Summary Assessment and Plan Potential Rehabilitation Potential Good Summary Impairments Pain,ROM,Strength,Balance, Coordination,Sensation,Tone, Cognition,Bed Mobility, Transfers,Gait,Activity Tolerance Progress Towards Goals Progressing Toward Goals Assessment Summary pt is progress well with mobility but continues to have decrease activity tolerance with slower more guarding ambulation on 2nd ambulation activity. pt plans to go to SNF to improve strength and functional independence. pt does not have any assistance at home and needs to be more independent than current leve to be safe at home. Goals Bed Mobility Goal Independent Transfer Goal Standby Assistance,Front Wheeled Walker Gait Goal Standby Assistance,Front Wheel Walker Gait Distance 250 Other Goals up/down 2 steps without rail using SPC/GUIDE RAIL CLEANER CGA Days to Meet Goals 10 Frequency of Treatment Frequency Of Treatment Twice a Day Treatment Plan Physical Therapy Treatment Plan Bed Mobility Training,Transfer Training,Gait Training, Therapeutic Exercise,Balance Retraining,Post Op Education, Discharge Planning,Hot or Cold Pack,Neuromuscular Re-ed, Coordination Retraining,Manual Therapy Precautions Lumbar Precautions Log Roll,No Twisting,Limit Bending,Lifting Restriction of 10 lbs,Gait Belt above Incisional Area Recommendations To Nursing Amount of Assist Needed 1 Person Assist Discharge Recommendations PT Discharge Recommendations SNF Rehab,Home vs SNF Equipment Needed for Home Before FWW Discharge Transportation Needs at Discharge Private Vehicle,Wheelchair/ Cabulance
[2022-03-24] MEDS: CYCLOBENZAPRINE 10 MG TABLET 5 MG PO (15:58)
[2022-03-24 16:56] VITALS: BP 140/68; PULSE 80; RESP 18; TEMP 37.2; O2SAT 94
--- NOTE | 2022-03-24 18:43 | PC.NURSE ---
Pt is AxOx4, needs 1person assistance with FWW and cooperative. VSS, pt c/o pain on legs, back and recieved PRN Oxy 10mg x2 with good effect. Also, pt recieved PRN Flexiril for back pain with good effect. Pt is eating well and drinking well. No other changes.
[2022-03-24 19:40] VITALS: BP 134/83; PULSE 93; RESP 17; TEMP 37.4; O2SAT 94
[2022-03-24] MEDS: AMLODIPINE 5 MG TABLET PO (20:03)
[2022-03-24] MEDS: SENNOSIDES 8.6 MG TABLET 17.2 MG PO (20:05)
[2022-03-24] MEDS: ESCITALOPRAM 10 MG TABLET PO (20:05)
[2022-03-24] MEDS: TERAZOSIN 5 MG CAPSULE 10 MG PO (20:06)
[2022-03-24 23:10] VITALS: BP 122/73; PULSE 83; RESP 16; TEMP 36.9; O2SAT 93
[2022-03-25] MEDS: CYCLOBENZAPRINE 10 MG TABLET 5 MG PO (01:25)
[2022-03-25] MEDS: OXYCODONE IR 5 MG TABLET 10 MG PO ×2 (02:29→05:47)
[2022-03-25 05:42] VITALS: BP 152/70; PULSE 79; RESP 18; TEMP 36.6; O2SAT 98
[2022-03-25] MEDS: PANTOPRAZOLE DR 20 MG TABLET PO (05:47)
[2022-03-25] MEDS: DOCUSATE 100 MG CAPSULE PO (08:58)
[2022-03-25] MEDS: ATORVASTATIN 20 MG TABLET PO (08:58)
[2022-03-25] MEDS: ASCORBIC ACID 500 MG TABLET 1000 MG PO (08:58)
[2022-03-25] MEDS: CHOLECALCIFEROL (VITAMIN D3) 1,000 UNIT TABLET 5000 UNIT PO (08:58)
[2022-03-25 09:03] VITALS: BP 136/60; PULSE 81; RESP 16; TEMP 37.4; O2SAT 95
[2022-03-25] MEDS: MELOXICAM 7.5 MG TABLET PO (09:06)
--- NOTE | 2022-03-25 09:30 | PT.IPTN ---
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 machines and devices (03/22/22) Surgery Performed Operation Date: 03/22/22 08:45 Actual Procedures p L4-5, L5-S1 with posterior instrumentation -Robot - Kristy Winslow MD Physical Therapy Treatment Note M2 PT-IP Current Condition Start: 03/23/22 12:51 Freq: NEEDED Status: Active Protocol: Document 03/23/22 09:25 AB (Rec: 03/23/22 13:09 AB [id number]) Physical Therapy Current Condition Current Condition Evaluation Date 03/23/22 Treatment Diagnosis s/p l4-5, L5S1 TLIF; difficulty in walking Onset Date 03/22/22 M3 PT-IP Subjective Start: 03/23/22 12:51 Freq: NEEDED Status: Active Protocol: Document 03/25/22 09:18 [place] (Rec: 03/25/22 09:37 [place] [id number]) Subjective Physical Therapy Visit Type Type Treatment Note Visit Start Time 09:18 Visit Stop Time 09:30 Total Visit Minutes 12 Number of CREDIT RELATIONSHIP MANAGER Visits 1 Physical Therapy Visit Comments Patient Comments pt is agreeable to do PT Therapy Pain Assessment Pain When Pain Assessed At Rest Pain Present Pain Present Pain Reported M4 PT-IP Mobility and Gait Start: 03/23/22 12:51 Freq: NEEDED Status: Active Protocol: Document 03/25/22 09:18 [place] (Rec: 03/25/22 09:37 [place] [id number]) PT-Bed Mobility Assessment Rolling Type of Rolling Log Rolling Level of Assist Standby Assistance Supine to Sit Supine to Sit Independent,Head of Bed Elevated Sit to Supine Sit to Supine Standby Assistance,Head of Bed Elevated Scooting Scooting to Edge of Bed Contact Guard Assistance PT-Transfer Assessment Sit to and From Stand Sit to and from Stand Contact Guard Assistance,1 Person Assistance,Use of Upper Extremities Equipment Transfer Assistive Device Gait Belt,Front Wheeled Walker Orthotic/Prosthetic Devices or Brace: No Transfers Transfer Destination Bed Transfer Technique Pt ambulated w/ FWW Transfer Ability Level of Assist Contact Guard Assistance,1 Person Assistance,Use of Upper Extremities Comments Mobility Comments Pt SBA to CGA for bed mobility and sit<>stand w/ FWW. Still very limited by pain and weakness and only able to tolerate ~30 ft ambulation w/ FWW w/ heavy weight bearing through BUE. Pt returned to bed w/ all needs in reach. Gait Assessment Gait Gait Assistance Required: Contact Guard Assist Distance (Feet) 30 Able to Maintain Weight Bearing Status Yes During Gait Assistive Devices Assistive Device Gait Belt,Front Wheeled Walker Orthotic/Prosthetic Devices or Brace: No Gait Deviations General Gait Pattern Decreased Stride Length, Decreased Feet Clearance,Step- to Gait Factors Limiting Gait Function Factors Limiting Gait Function Decreased Activity Tolerance, Decreased Sensation,Decreased Strength,Limited Range of Motion,Pain,Poor Balance,Poor Safety Awareness Comments Gait Comments Pt unable to tolerate gait progression to step through and heel toe due to pain. Relies on BUE to off-weight. PT-Balance Assessment Sitting Balance and Reactions Static Sitting Balance Ability Good Dynamic Sitting Balance Ability Good Standing Balance and Reactions Static Standing Balance Ability Fair Dynamic Standing Balance Ability Fair Device Used FWW M5 PT-IP Objective Assessments Start: 03/23/22 12:51 Freq: NEEDED Status: Active Protocol: Document 03/23/22 09:25 AB (Rec: 03/23/22 13:09 AB [id number]) Orientation Orientation/Cognition Level of Alertness Alert Orientation Name,Place,Situation Language Function Ability No Deficits Noted Safety Awareness Decreased Safety Awareness Memory Description No Deficits Noted Gross Range of Motion Lower Extremity ROM Assessment Within Functional Limits Strength Lower Extremity Strength Hip 4-/5 Knee 3+/5 Sensation Assessment Sensation Gross Sensation Right LE Impaired,Left LE Impaired Sensation Description Numbness,Tingling Comments Sensation Comments lateral thighs Muscle Tone Muscle Tone WNL Yes M6 PT-IP Treatment Start: 03/23/22 12:51 Freq: NEEDED Status: Active Protocol: Document 03/25/22 09:18 [place] (Rec: 03/25/22 09:37 [facility] [id number]) Physical Therapy Treatment Education Education Provided Safety M7 PT-IP Assessment and Plan Start: 03/23/22 12:51 Freq: NEEDED Status: Active Protocol: Document 03/25/22 09:18 [place] (Rec: 03/25/22 09:37 [place] [id number]) PT Summary Assessment and Plan Potential Rehabilitation Potential Good Summary Impairments Pain,ROM,Strength,Balance, Coordination,Sensation,Tone, Cognition,Bed Mobility, Transfers,Gait,Activity Tolerance Progress Towards Goals Progressing Toward Goals Assessment Summary Pt not requiring heavy assist but still very low tolerance for activity due to pain and weakness and unable to progress to normalized gait at this time. He does not have assistance at home and will benefit from SNF to improve functional mobility. Goals Bed Mobility Goal Independent Transfer Goal Standby Assistance,Front Wheeled Walker Gait Goal Standby Assistance,Front Wheel Walker Gait Distance 250 Other Goals up/down 2 steps without rail using SPC/STUDENT EDUCATION SPECIALIST CGA Days to Meet Goals 10 Frequency of Treatment Frequency Of Treatment Twice a Day Treatment Plan Physical Therapy Treatment Plan Bed Mobility Training,Transfer Training,Gait Training, Therapeutic Exercise,Balance Retraining,Post Op Education, Discharge Planning,Hot or Cold Pack,Neuromuscular Re-ed, Coordination Retraining,Manual Therapy Precautions Lumbar Precautions Log Roll,No Twisting,Limit Bending,Lifting Restriction of 10 lbs,Gait Belt above Incisional Area Recommendations To Nursing Amount of Assist Needed 1 Person Assist Discharge Recommendations PT Discharge Recommendations SNF Rehab,Home vs SNF Equipment Needed for Home Before FWW Discharge Transportation Needs at Discharge Private Vehicle,Wheelchair/ Cabulance
--- NOTE | 2022-03-25 09:34 | PM.PNPO.1 ---
Subjective Subjective Date Patient Seen: 03/25/22 Time Patient Seen: 09:44 Interval history: Patient's pain is well controlled. Denies fever or chills. No nausea or vomiting. Exam Vital Signs (past 8 hours): - 03/25/22 05:42 Temperature 98 F Pulse Rate 79 Respiratory Rate 18 Blood Pressure 152/70 H Pulse Oximetry 98 Oxygen Delivery Method Room Air Oxygen Flow Rate 0 Narrative Exam Narrative: 66-year-old male resting comfortably in bed in no apparent distress. Dressing is Clean, dry, intact.. Motor functions intact bilateral lower extremities. Sensation grossly intact to light touch bilateral lower extremities. 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 GERD (gastroesophageal reflux disease) Heart murmur History of brachytherapy History of malignant neoplasm of prostate HLD (hyperlipidemia) HTN (hypertension) Lower urinary tract symptoms (LUTS) Nephrolithiasis YANETH on CPAP Pneumonia Prostate cancer (~2013) Sciatica Spinal stenosis Tinnitus Umbilical hernia Surgical History History of ankle surgery (1993) History of arthroscopy of left shoulder (2019) History of back surgery History of bunionectomy of right great toe (1999) History of mandibular surgery (1973) History of prostate biopsy Hx of bilateral cataract extraction S/P cervical spinal fusion (2018) Family History Father BPH (benign prostatic hyperplasia) Cancer Hearing impairment Mother Cancer Stroke Diabetes mellitus Hyperlipidemia Social History marital status: household members: spouse occupational status: previously employed Smoking Status: Current some day smoker alcohol intake: current caffeine: Yes Assessment & Plan Post-op Postoperative Procedures: Procedures Operation Date: 03/22/22 08:45 Actual Procedure Side Surgeon p L4-5, L5-S1 with posterior instrumentation -Robot Kristy Winslow MD Postoperative day: 3 Postoperative status narrative: Stable status post lumbar fusion Postoperative plan narrative: Mobilize with physical therapy, limit bending, twisting, lifting Multimodal pain management Patient will need further rehab prior to returning home. [facility].
--- NOTE | 2022-03-25 09:50 | P.DS_ITS ---
History of Present Illness History of Present Illness Date Patient Seen: 03/25/22 Time Patient Seen: 09:51 Chief complaint: Back pain Narrative: See progress note Discharge Providers Provider Date of admission: 03/22/22 07:02 Discharge Date: 03/25/22 Primary care physician: Alessandro Tran MD Consults: 03/22/22 08:13 Consult to Respiratory Therapy Evaluate & Treat Comment: Physician Instructions: Evaluate and treat 03/22/22 14:55 Consult to Occupational Therapy Evaluate & Treat Comment: Physician Instructions: Evaluate and treat Consult to Physical Therapy Evaluate & Treat Comment: Physician Instructions: Evaluate and Treat 03/25/22 08:56 Consult to Discharge Planning Routine Comment: Likely will require SNF Discharge provider: Jose Miguel Hernandez PA-C Summary Hospital Course Discharge Diagnosis: 1. L4-5, L5-S1 spinal stenosis with radiculopathy 2. Lumbar spondylosis with radiculopathy Hospital Course: 1. L4-5, L5-S1 Postero-lateral and posterior interbody fusion 2. L4-5, L5-S1 interbody cage placement. 3. L4-5, L5-S1 decompressive laminectomy with bilateral facetecomies 4. L4-5, L5-S1 Posterior segmental instrumentation 5. [place] of bone marrow from iliac crest 6. Utilization of microsurgical technique and operating microscope 7. Utilization of robotic assisted navigation Same procedure as scheduled: Yes Indications: Patient has been having chronic back pain and worsening lumbar radiculopathy. Patient failed multiple conservative management with worsening pain weakness and numbness in her lower extremity.? Patient has been having difficulty performing activity of daily living.? After discussing risks benefits of treatment options, patient elected proceed with surgery. Surgeon: Kristy Winslow Plant Assigner: Jose Miguel Hernandez Click Yes if Unassisted: No Anesthesia Type: General Patient admitted to the hospital for the above-mentioned procedure. Patient consented to the same. Patient taken to the operating room and underwent lumbar fusion on March 22, 2022. Patient back in his room in recovering well as in stable condition. Patient would benefit from shelter facility for further rehabilitation prior to returning home. Patient will be discharged to shelter facility today. 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 GERD (gastroesophageal reflux disease) Heart murmur History of brachytherapy History of malignant neoplasm of prostate HLD (hyperlipidemia) HTN (hypertension) Lower urinary tract symptoms (LUTS) Nephrolithiasis YANETH on CPAP Pneumonia Prostate cancer (~2013) Sciatica Spinal stenosis Tinnitus Umbilical hernia Surgical History History of ankle surgery (1993) History of arthroscopy of left shoulder (2019) History of back surgery History of bunionectomy of right great toe (1999) History of mandibular surgery (1973) History of prostate biopsy Hx of bilateral cataract extraction S/P cervical spinal fusion (2018) Family History Father BPH (benign prostatic hyperplasia) Cancer Hearing impairment Mother Cancer Stroke Diabetes mellitus Hyperlipidemia Social History marital status: household members: spouse occupational status: previously employed Smoking Status: Current some day smoker alcohol intake: current caffeine: Yes Discharge Assessment & Plan Assessment and Plan Assessment: Patient stable status post lumbar fusion. Patient progressing slower than expected and would benefit from shelter facility for further rehab prior to returning home. Plan of Treatment: Discharge to shelter facility today. Discharge Plan Discharge Plan Patient Disposition: SNF Transfer to: [facility] Rehabilitation and Healthcare Provider Discharge Comment: stable Discharge orders & Medications Prescriptions: New sennosides [senna] 8.6 mg Tablet 17.2 mg PO BEDTIME Qty: 20 0RF acetaminophen 325 mg Tablet 650 mg PO Q6HR PRN (Reason: Pain, Mild (1-3)) Qty: 60 0RF hydroxyzine pamoate 25 mg Capsule 25 mg PO Q4HR PRN (Reason: Nausea And Vomiting) Qty: 40 0RF oxycodone 5 mg tablet 5 mg PO Q4H PRN (Reason: pain) Qty: 60 0RF Continued ascorbic acid (vitamin C) [Vitamin C] 1,000 mg Tablet 1 g PO DAILY 0RF atorvastatin 20 mg Tablet 20 mg PO DAILY 0RF zinc acetate 25 mg (zinc) Capsule 25 mg PO DAILY 0RF amlodipine 5 mg Tablet 5 mg PO BEDTIME 0RF acyclovir 400 mg Tablet 400 mg PO TID PRN (Reason: Breakout) 0RF indomethacin 75 mg Capsule, Extended Release 75 mg PO DAILY 0RF escitalopram oxalate 10 mg Tablet 10 mg PO BEDTIME 0RF omeprazole 20 mg Tablet,Delayed Release (Dr/Ec) 20 mg PO QAM 0RF cyclobenzaprine 10 mg Tablet 5 mg PO TID PRN (Reason: Spasms/Cramps) 0RF terazosin 10 mg capsule 10 mg PO BEDTIME 0RF cholecalciferol (vitamin D3) 50 mcg (2,000 unit) capsule 5,000 unit PO DAILY 0RF lysine [L-Lysine] 500 mg tablet 1,000 mg PO DAILY 0RF Discontinued hydrocodone-acetaminophen 5-325 mg Tablet 0.5 - 1 tab PO BID PRN (Reason: Pain) 0RF Follow up/Referrals: Alessandro rTan MD [Primary Care Provider] - Kristy Winslow MD [Physician] - (2 weeks) Diet/Activity/Treatments Diet: Diet as Tolerated Activity: Weight-bearing as tolerated, Limit bending, twisting, lifting Skin/Wound/Dressing Care Report to your healthcare provider any signs of infection, such as:: chills, fever, increased pain, unusual drainage and unusual redness Dressing: Keep dressing clean and dry [facility] Reason for rehabilitation: Post-operative therapy Rehab type: Physical therapy and Occupational therapy Visit Report/Discharge Packet Instructions: DI for Prescription Opioid Use, DI for Transforaminal Lumbar Interbody Fusion Stand Alone Forms: Surgery Discharge Discharge Data Primary Care Provider: Alessandro Tran
[2022-03-25 11:17] LABS: COVID19 -Nasal RAPID Negative (Negative)
--- NOTE | 2022-03-25 11:26 | OT.IP.TRT ---
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 machines and devices (03/22/22) Surgery Performed Operation Date: 03/22/22 08:45 Actual Procedures p L4-5, L5-S1 with posterior instrumentation -Robot - Kristy Winslow MD Occupational Therapy Treatment Note M2 OT-IP Current Condition Start: 03/23/22 13:03 Freq: Status: Discharge Protocol: Document 03/23/22 13:03 [facility] (Rec: 03/23/22 13:18 [facility] [id number]) Occupational Therapy Current Condition Current Condition Evaluation Date 03/23/22 Treatment Diagnosis S/P L4-5, L5-S1 TLIF Post Operative Precautions Lumbar Precautions Log Roll,No Twisting,Limit Bending,Lifting Restriction of 10 lbs,Gait Belt above Incisional Area M3 OT- IP Subjective and Pain Start: 03/23/22 13:03 Freq: Status: Discharge Protocol: Document 03/25/22 12:26 [facility] (Rec: 03/25/22 13:02 [facility] [id number]) OT- Subjective Occupational Therapy Visit Type Type Treatment Note Visit Start Time 11:38 Visit Stop Time 12:26 Total Visit Minutes 48 Occupational Therapy Visit Comments Patient Comments Pt agreeing to shower. Patient/Caregiver Goals To go to skilled rehab. OT Pain Assessment Pain When Pain Assessed During Mobility Pain Present Pain Present Pain Reported Location back Intensity 8 Scale Used Numeric (0 - 10) M4 OT- IP ADL's Start: 03/23/22 13:03 Freq: Status: Discharge Protocol: Document 03/25/22 12:26 [facility] (Rec: 03/25/22 13:02 [facility] [id number]) OT CZD-Wxrv-Cayxyxl Comments OT Self-Feeding Comments NOt at meal time. OT ADL-Grooming General Evaluation Grooming Ability Standby Assistance OT ADL-Dressing General Eval Lower Body Dressing Ability Standby Assistance Areas Needing Assistance Socks Comments OT Dressing Comments Pt tired to cross his leg over to charles his socks and able to do but states not comfortable and therefore used sock aid for the other side. OT ADL-Toileting General Evaluation Toileting Ability Standby Assistance OT ADL-Bathing Bathing Type Bathing Type Shower General Evaluation Bathing Ability Minimal Assistance Areas Needing Assistance Wash/Dry Back Comments OT Bathing Comments Pt CGA to stand while washing his pericare need and assist to wash his back. M5 OT- IP IADL's Start: 03/23/22 13:03 Freq: Status: Discharge Protocol: Document 03/23/22 13:03 [facility] (Rec: 03/23/22 13:18 [facility] [id number]) OT-Instrumental Activities of Daily Living Deficits IADL Deficits Identified Deficits Home Safety Awareness Awareness of Need for Assistance at Home Good Awareness Ability to Problem Solve Emergency Able to Problem Solve Situations M6 OT- IP Functional Cognition Start: 03/23/22 13:03 Freq: Status: Discharge Protocol: Document 03/25/22 12:26 [facility] (Rec: 03/25/22 13:02 [facility] [id number]) Cognitive Factors Limiting Selfcare Function Cognitive Ability Level of Alertness Alert Patient Orientation Name,Age,Birthday,Month,Date, Year,Day of Week,Place, Situation Attention Span Ability Capable of Focused Attention, Capable of Sustained Attention Ability to Follow Commands Able to Follow One Step Commands Safety Awareness Decreased Ability to Apply Precautions,Underestimates Need for Assistance Cognitive Comments Cognitive Assessment Comments Pt a bit impulsive today and needing cues to follow back precautions. Pt tends to want to pull up into long sitting versus log rolling and needing cues to stop and follow log rolling technique. M7 OT- IP Mobility and Balance Start: 03/23/22 13:03 Freq: Status: Discharge Protocol: Document 03/25/22 12:26 [facility] (Rec: 03/25/22 13:02 [facility] [id number]) OT- Bed Mobility Assessment Sit to Supine Sit to Supine Assist Minimal Assistance OT-Transfer Assessment Sit to and From Stand Sit to and from Stand Contact Guard Assistance Transfers Transfer Ability Standby Assistance Technique Transfer Destination Bed,Shower Stall Transfer Technique Stand Step Pivot Devices Transfer Assistive Devices Gait Belt,Front Wheeled Walker Comments Mobility Comments Pt needign cues to slow down with FWW. OT- Balance Assessment Sitting Balance and Reactions Static Sitting Balance Ability Normal Dynamic Sitting Balance Ability Good Standing Balance and Reactions Static Standing Balance Ability Good M8 OT- IP Objective Assessments Start: 03/23/22 13:03 Freq: Status: Discharge Protocol: Document 03/23/22 13:03 [facility] (Rec: 03/23/22 13:18 [facility] [id number]) OT-Muscle Tone Assessment Muscle Tone WNL Yes M9 OT- IP Assessment and Plan Start: 03/23/22 13:03 Freq: Status: Discharge Protocol: Document 03/25/22 12:26 [facility] (Rec: 03/25/22 13:02 [facility] [id number]) OT Summary Assessment and Plan Potential Rehabilitation Potential Good Analytic Complexity at Evaluation Low Summary OT Impairments Pain,Balance,Functional Mobility,Grooming,Dressing, Toileting,Bathing,Toilet Transfers,Shower Transfers Progress Towards Goals Progressing Toward Goals Assessment Summary Pt a bit more groggy and impulsive today with decreased ability to follow back precautions. Pt however able to tolerate a shower and practice use of LB dressing equipment today. Goals Self-Feeding Goal Independent Grooming Goal Independent Dressing Goal Independent Toileting Goal Independent Bathing Goal Independent Toilet Transfer Goal Independent Shower Transfer Goal Independent Days to Meet Goals 15 Frequency of Treatment Frequency Of Treatment Once a Day Treatment Plan OT Treatment Plan ADL Training,Functional Mobility,Patient/Family Education,Discharge Planning Discharge Recommendations OT Discharge Recommendations SNF Rehab Transportation Needs at Discharge Wheelchair/Cabulance
[2022-03-25] MEDS: SODIUM CHLORIDE 0.9% FLUSH 10 ML IV (11:47)
--- NOTE | 2022-03-25 12:49 | PC.NURSE ---
Pt readied for discharge. attentive at bedside. Report given to [facility], tank driver from [facility] here to collect Pt. Belongings accounted for, room checked again, IV HL removed intact. Pt assisted to W/C. Needs reminding to follow proper body alignment and movement. Pt escorted to vehicle and transported to [facility].
--- NOTE | 2022-03-25 14:13 | CM.DPNOTE ---
DCP Note 66 yo male, POD#3 from [facility], inpatient status and requesting DC to [facility]. This SURVEYOR GEODETIC reviewed this with patient POD1 and March/[facility] accepted this patient for admission today. Insurance: [facility]/ DC to [facility] via w/c transport arranged for 1230, faxed completed and signed med list, Rx and PASRR. C19 PCR updated Patient and spouse aware and agreeable to plan JW
== END 2022-03-25 12:40 | DRG 455 ==
LOC: OR 12:08 → AC 12:08
PROVIDERS: Admitting Provider Orthopaedic Surgery Orthopaedic Surgery of the Spine; PCP Internal Medicine; Referring Provider Orthopaedic Surgery Orthopaedic Surgery of the Spine; Visit Provider Orthopaedic Surgery Orthopaedic Surgery of the Spine
PROC: 0SG00AJ Fusion of Lumbar Vertebral Joint with Interbody Fusion Device, Posterior Approach, Anterior Column, Open Approach (ICD-10-PCS; principal; 2022-03-22 08:45)
DX: M48.061 Spinal stenosis, lumbar region without neurogenic claudication (principal); M43.17 Spondylolisthesis, lumbosacral region; M48.07 Spinal stenosis, lumbosacral region; M54.16 Radiculopathy, lumbar region; M54.17 Radiculopathy, lumbosacral region; E78.5 Hyperlipidemia, unspecified; I10 Essential (primary) hypertension; F32.A Depression, unspecified; K21.9 Gastro-esophageal reflux disease without esophagitis; N40.0 Benign prostatic hyperplasia without lower urinary tract symptoms; F17.200 Nicotine dependence, unspecified, uncomplicated; Z20.822 Contact with and (suspected) exposure to COVID-19
CPT/HCPCS: 36415; 72100; 76000; 82962; 85014; 85018; 87635; 97116; 97161; 97165; 97530; 97535; C1776; C9803; C1831; C9290; J0171; J0690; J1170; J2250; J2704; J3010; J3410